=== PATIENT | male | born 1960 | race Caucasian/White ===

== ENCOUNTER 2021-08-09 14:54 | Emergency (ER) | payer OTHER, SELFPAY ==
[2021-08-09 15:06] VITALS: BP 134/87; PULSE 120; RESP 16; TEMP 36.2; O2SAT 100
--- NOTE | 2021-08-09 15:32 | ED.SKABFB ---
HPI - Skin/Abscess/Foreign Bdy General Chief complaint: Skin/Abscess/Foreign Body Stated complaint: bump on groin area Time Seen by Provider: 08/09/21 15:23 Source: patient and family Mode of arrival: ambulatory Limitations: no limitations History of Present Illness HPI narrative: Patient presents today complaining of 4-day history of abscess to the genital area that has worsened for the past 3 days. Patient states he has had a boil to this area in the past last December that ruptured on its own and drained. Currently rates pain 3/10 at rest, but this increases significantly with any walking or sitting. He has been taking ibuprofen, applying a heat pack, and PRID salve without much relief. Related Data Allergies Allergy/AdvReac Type Severity Reaction Status Date / Time No Known Allergies Allergy Verified 08/09/21 15:23 Review of Systems Review of Systems: CONSTITUTIONAL: Denies body aches, fever, chills, or sweats. EYES: Denies visual changes, redness, or discharge. ENT: Denies rhinorrhea, congestion, sore throat, or otalgia. CARDIOVASCULAR: Denies chest pain, palpitations, or edema. RESPIRATORY: Denies cough or dyspnea. GASTROINTESTINAL: Denies abdominal pain, nausea, vomiting, or diarrhea. GENITOURINARY: Denies dysuria or hematuria. SKIN: Denies rash, itching, or wounds.+ Genital abscess MUSCULOSKELETAL: Denies back pain, joint pain, or myalgia. NEUROLOGIC: Denies headache, numbness, tingling, or weakness. PSYCH: Denies depression or anxiety. PMFSH Comments At time of signature, I have reviewed and agree with nursing past medical, surgical, social and family history unless otherwise noted. Please see nursing chart for further information. There is no relevant family history pertinent to the presenting complaint Exam Narrative: GENERAL: Well-appearing, well-nourished, and in no acute distress. HEAD: Normocephalic, atraumatic. EYES: EOMI. No redness or drainage. Conjunctivae normal. ENT: Mucous membranes pink and moist. NECK: Normal AROM. CHEST: No respiratory distress. EXTREMITIES: Normal range of motion. No edema. SKIN: Warm, dry, no rash. Capillary refill normal. Normal skin turgor. Patient has a naproxen and a 4x4cm round, bulging, fluctuant abscess to the left perineum that is tender to palpation. The skin overlying this area is very very thin. Patient is lying down on the bed as he states he cannot sit due to pain. This abscess does not extend to the rectal area. NEURO: No focal deficits. Alert and oriented x3. Gait steady. PSYCH: Normal affect. No signs of depression or anxiety. Course Course Level of Care: Express Care Visit Vital Signs Vital signs: Vital Signs Temperature 97.1 F L 08/09/21 15:06 Pulse Rate 120 H 08/09/21 15:06 Respiratory Rate 16 08/09/21 15:06 Blood Pressure 134/87 08/09/21 15:06 Pulse Oximetry 100 08/09/21 15:06 Oxygen Delivery Room Air 08/09/21 15:06 Temperature 97.1 F L 08/09/21 15:06 Pulse Rate 120 H 08/09/21 15:06 Respiratory Rate 16 08/09/21 15:06 Blood Pressure 134/87 08/09/21 15:06 Pulse Oximetry 100 08/09/21 15:06 Oxygen Delivery Room Air 08/09/21 15:06 Reviewed. Pt has been instructed to follow up with his PCP regarding his elevated blood pressure today. Procedures Abscess I/D perineal: Date of Incision: 08/09/21 Time of Incision: 15:45 Sedation/analgesia: none Local Anesthetic: lidocaine 1% Amount of anesthesia used (mL): 5 Technique: incised with #11 blade Amount of fluid expressed (mL): 30 Irrigation: Yes (normal saline) Packing used?: iodoform I&D Results: Pus Abcess I&D Additional Comments: Patient tolerated procedure well. Significant pain relief when finished with procedure. MDM - Skin/Abscess/Foreign Bdy Differential Diagnosis Differential diagnosis: Likely abscess of skin or subcutaneous tissue, cellulitis and other (Perirectal abscess)
== END 2021-08-09 16:24 | disposition home or self-care (01) ==
PROVIDERS: Emergency Provider Nurse Practitioner
DX: L02.215 Cutaneous abscess of perineum (principal); E78.00 Pure hypercholesterolemia, unspecified; I10 Essential (primary) hypertension
CPT/HCPCS: 10061; 87070; 87077; 87147; 87181; 87186; 87205; 99213; G0463

== ENCOUNTER 2023-05-31 12:41 | Outpatient (CLI) | payer BC, SELFPAY ==
--- NOTE | 2023-05-31 12:54 | ECG_ITS ---
Measurements Intervals [place] Rate: 93 P: 48 LA: 153 QRS: -7 QRSD: 98 T: 62 QT: 341 QTc: 424 Interpretive Statements SINUS RHYTHM DELAYED PRECORDIAL R/S TRANSITION BASELINE ARTIFACT- I, III, AVL, V2-V6 BORDERLINE ECG NO PREVIOUS ECG AVAILABLE FOR COMPARISON Electronically Signed On 05-31-2023 13:26:02 CDT by Rick Cody D.O.
== END 2023-05-31 12:42 | disposition home or self-care (01) ==
LOC: ANHSURGERY 12:49
PROVIDERS: PCP Family Medicine; Visit Provider Surgery
DX: Z01.818 Encounter for other preprocedural examination (principal); E78.5 Hyperlipidemia, unspecified
CPT/HCPCS: 93005

== ENCOUNTER 2023-06-03 00:25 | Day surgery (SDC) | payer BC, SELFPAY ==
[2023-05-30 10:38] VITALS: BMI 27.7
--- NOTE | 2023-05-30 10:48 | PC.NURSE ---
Report to the Outpatient Waiting Room, entrance under the green pavilion located off [facility], at time 11:00am on date 06/03/23. Planned Procedure Time: 1:00pm. Time changes happen often and if your time is changed the preop area will call you the afternoon before. - You and your visitor will be asked to self-screen and do not enter if you have any COVID symptoms. - A mask is optional within the hospital at this time. Patients may have clear liquids (water, carbonated beverages, clear teas, apple juice) until 3 hours prior to surgery (10:00am) with a maximum of 20 ounces. - No food from midnight until time of surgery Take the following medications with a SIP of water the morning of surgery: N/A DO NOT STOP ANY OF YOUR OTHER PRESCRIPTION MEDICATIONS PRIOR TO SURGERY ?EXCEPT THE FOLLOWING Medications to discontinue per physician PREBIOTIC Date to take last dose TODAY Please no make-up, nail bulgarian, hairspray, perfume, deodorant, or body powder the day of surgery. No jewelry (including any body piercings) or valuables the day of surgery, leave them at home. Please take a shower or bath the night before, or the morning of, surgery with an antibacterial soap. Wear comfortable, loose fitting clothing. - Jewelry must be removed prior to entering the operating room. Rings and piercings that are not removed may be cut off. - The hospital will not accept responsibility for valuables. - Please leave all valuables, including medications, at home the day of surgery. If you are going home after surgery, a licensed fast food delivery driver must drive you home. - NO public transportation without another adult if you receive anesthesia. - We recommend that an adult stay with you for 24 hours following discharge. - We also recommend that you do not drive, make important decision, drink alcoholic beverages, or take any drugs that were not prescribed by your health care provider for at least 24 hours after your discharge time. Follow any additional instructions given to you from your surgeon. If you or anyone in your household have experienced Covid symptoms in the past week, please notify your surgeon or the nurse liaison at the phone number below for possible testing. Telephone instructions given to PATIENT and asked if any additional questions and then verbalized understanding. Patient advised to call surgeon office or pre surgery nurse liaison [phone] if any additional questions.
[2023-06-03] VITALS (7 sets, daily range): BP systolic 107–126; BP diastolic 74–87; PULSE 84–100; RESP 12–20; TEMP 36.3; O2SAT 99–100
[2023-06-03] MEDS: LACTATED RINGERS 1,000 ML 30 ML IV CONT (10:25)
[2023-06-03] MEDS: ACETAMINOPHEN 500 MG TABLET 1000 MG PO (10:27)
[2023-06-03] MEDS: KETOROLAC 15 MG/ML VIAL (*BKC) IV PUSH (10:27)
--- NOTE | 2023-06-03 10:57 | P.PNAN_ITS ---
Anes - Initial Pre Proc Eval Procedure: Operation Date: 06/03/23 12:00 Proposed Procedures p Rectal Examination Under Anesthesia, Anal Fistulotomy - Jb Khan DO Date/Time: 06/03/23 10:57 Surgeon: Jb Khan DO Pre Op Diagnosis: anal fistula Patient Data Age: 62 Gender: M Height: 1.68 m Weight: 80.6 kg Last Vital Signs Temp 36.3 C L 06/03/23 09:59 Pulse 88 06/03/23 09:59 Resp 18 06/03/23 09:59 BP 115/74 06/03/23 09:59 Pulse Ox 99 06/03/23 09:59 O2 Del Method Room Air 06/03/23 09:59 Allergies Allergy/AdvReac Type Severity Reaction Status Date / Time prednisone Allergy Intermediate Rash Verified 06/03/23 10:47 Home Medications Medication Instructions Recorded Confirmed Type amlodipine 5 mg-olmesartan 20 mg 1 tablet PO DAILY 03/31/23 06/03/23 History tablet atorvastatin 40 mg tablet 40 mg PO DAILY 03/31/23 06/03/23 History Prebiotic Fiber 1 tab-cap PO DAILY 05/30/23 06/03/23 History Patient hx anesthesia problems: none Family hx anesthesia problems: none Results Review: All pre-operative results and documents have been reviewed as part of the pre- operative evaluation. [facility] Past Medical History Medical History Benign essential HTN Hyperlipidemia Perianal abscess Family History Family History Mother Depression Grandparent Lung cancer Hypertension Heart disease Cerebrovascular accident Social History Social History Social History: Smoking status: Never smoker Tobacco type: smokeless tobacco Second hand tobacco smoke exposure: No Alcohol intake: current Drinks per week: 18 Substance use: never Substance use type: does not use Do You Feel Safe in your Home?: Yes Lack of Transportation: No Lack of Food: Never True Current Housing: I Have Housing Concerned About Future Housing: No Difficulty Paying Gas/Electric Bills: No Difficulty Paying for Meds: No Currently Unemployed: YES Education: Don't Know Difficulty w/ Childcare or Family Care: No Living arrangements: with family Occupation/Education: retired Gender identity (if verbalized by the patient): Male Sexual Orientation (if Verbalized by the Patient): Straight or Heterosexual Spiritual care concerns: No Anes - Eval Final PreProcedure Day of Procedure 06/03/23 10:57 Patient weight: overweight Heart: regular rate and rhythm Lungs: clear to auscultation Airway: Mallampati scale class II Neurological: alert and oriented Last oral intake: >/= 8 hours ASA classification: III Emergent: no Anesthetic plan: proceed Anesthesia type and monitoring: general ETT and standard monitoring Results Review: All pre-operative results and documents have been reviewed as part of the pre- operative evaluation. Informed Consent: The patient's anesthetic plan and its attendant risks and benefits were discussed with the patient/family/POA. Questions were solicited and answers provided to the satisfaction of the patient/family/POA.
--- NOTE | 2023-06-03 11:35 | PM.IMHP ---
H&P: HPI History of Present Illness Date/Time: 06/03/23 11:35 Chief Complaint: anal fistula Narrative: 62 yo man presents for anal fistulotomy. He reports no changes since last seen in office. Review of Systems Review of Systems: All systems reviewed & are unremarkable except as noted in HPI and below Constitutional: Constitutional: Denies chills, Denies fever(s), Denies headache(s) and Denies weight loss Eyes: Eyes: Denies change in vision ENT: Denies dizziness, Denies headache(s), Denies neck mass and Denies throat swelling Cardiovascular: Cardiovascular: Denies chest pain, Denies lightheadedness and Denies dyspnea Respiratory: Respiratory: Denies cough, Denies dyspnea and Denies wheezing Gastrointestinal: Gastrointestinal: Denies abdominal pain, Denies change in bowel habits, Denies nausea and Denies vomiting Genitourinary: Genitourinary: Denies hematuria and Denies dysuria Musculoskeletal: Musculoskeletal: Reports as per HPI Integumentary/Breasts: Skin/Breast: Reports as per HPI Neurologic: Denies dizziness and Denies headache(s) Allergic/Immunologic: Allergic/Immunologic: Denies throat swelling and Denies wheezing PMFSH Past Medical History Medical History Benign essential HTN Hyperlipidemia Perianal abscess Family History Family History Mother Depression Grandparent Lung cancer Hypertension Heart disease Cerebrovascular accident Social History Social History Social History: Smoking status: Never smoker Tobacco type: smokeless tobacco Second hand tobacco smoke exposure: No Alcohol intake: current Drinks per week: 18 Substance use: never Substance use type: does not use Do You Feel Safe in your Home?: Yes Lack of Transportation: No Lack of Food: Never True Current Housing: I Have Housing Concerned About Future Housing: No Difficulty Paying Gas/Electric Bills: No Difficulty Paying for Meds: No Currently Unemployed: YES Education: Don't Know Difficulty w/ Childcare or Family Care: No Living arrangements: with family Occupation/Education: retired Gender identity (if verbalized by the patient): Male Sexual Orientation (if Verbalized by the Patient): Straight or Heterosexual Spiritual care concerns: No Meds Home Medications and Allergies Home Medications Medication Instructions Recorded Confirmed Type amlodipine 5 mg-olmesartan 20 mg 1 tablet PO DAILY 03/31/23 06/03/23 History tablet atorvastatin 40 mg tablet 40 mg PO DAILY 03/31/23 06/03/23 History Prebiotic Fiber 1 tab-cap PO DAILY 05/30/23 06/03/23 History Allergies Allergy/AdvReac Type Severity Reaction Status Date / Time prednisone Allergy Intermediate Rash Verified 06/03/23 10:47 Vital Signs Vital Signs - 24 hr 06/03/23 09:59 Temperature 36.3 C L Pulse Rate 88 Respiratory Rate 18 Blood Pressure 115/74 Pulse Oximetry 99 Oxygen Delivery Room Air Exam Const: General: no acute distress and alert Orientation/consciousness: patient oriented x3 HENMT: Head: normocephalic and atraumatic Ears: hearing grossly normal bilaterally Face/Nose/Sinus: Normal nares present Mouth: Yes Normal oral and palatal mucosa present Eyes: Periorbital: periorbital findings normal Sclera: sclerae normal EOM: EOMs intact bilaterally Neck: Neck: normal visual inspection, no lymphadenopathy and trachea midline Chest: Chest palpation & inspection: normal inspection of the chest Resp: Effort & Inspection: normal respiratory effort Auscultation: clear to auscultation bilaterally Cardio: Jugular venous distension: no JVD Rate: regular rate Rhythm: regular rhythm Heart sounds: S1 normal heart sound present and S2 normal heart sound present Peripheral pulses: Peripheral pulses 2+ throughout GI: Inspection:
--- NOTE | 2023-06-03 11:36 | WPDHPUPDATE1 ---
History and Physical Update Update Date/Time: 06/03/23 11:36 History and Physical has been reviewed, including an updated exam of the patient. There are NO changes in the patient's condition. Risks, benefits, and alternatives have been discussed and questions answered. Patient agrees to proceed with procedure.
[2023-06-03] MEDS: ceFAZolin 2 GM/D5W 50 ML 2 GM/50 ML BAG IVPB (11:55)
[2023-06-03] MEDS: BUPivacaine HCL 0.5% 10 ML AMP INFILTRATE (12:30)
--- NOTE | 2023-06-03 12:34 | W.PM.PROC2 ---
Procedure Note - Detailed Date of Procedure 06/03/23 Pre-op Diagnosis anal fistula Post-op Diagnosis Same (Suprasphincteric left anterior anal fistula) Procedure Performed Rectal exam under anesthesia with placement of draining seton Surgeon Jb Khan, DO Anesthesia General and Local (0.5% bupivacaine with epinephrine) Indications This is a 62-year-old man who presented with intermittent drainage in his perirectal region. He has a history of a perirectal abscess that was incised and drained about 3 years ago. He then was having intermittent drainage about every 4-6 weeks. He was living in [place] and states that he had the area cauterized twice but the area kept returning. On exam he was found have a small raised nodule the left anterior perirectal region that had a small punctate opening consistent with an anal fistula. Discussions were made with the patient about treatment options and decision was made to proceed with rectal exam under anesthesia with fistulotomy. Findings Rectal exam anesthesia was performed. The patient was found to have an anal fistula opening in the left anterior perirectal region about 3 cm from the anal verge. The fistula tract appeared to track deep into the perirectal tissue and was tracking all the way superior to the sphincter muscle fibers. Hydrogen peroxide was injected into the fistula tract to help identify the internal opening. Was then able to pass probe along this tract into internal opening in the anterior midline. Due to how deep the tract was and involving the sphincter muscles, I chose to place a vessel loop for a seton drain. No attempt was made at fistulotomy due to the risk transecting the sphincter. No other abnormalities were noted. No specimens were obtained for pathology. Description of Procedure Procedure as well as risks, benefits, and alternatives were discussed with the patient. Written consent was obtained and placed in chart prior to procedure. Patient was brought back to surgical suite. He was placed supine on operating table. Time-out was done to confirm patient and procedure. He was then intubated by the anesthesia department. He was then repositioned into dorsal lithotomy position on the operating table. His perirectal region was prepped and draped in sterile fashion using Betadine prep. Digital rectal exam was initially performed. A Hill-Arrington anoscope was then inserted and the anal rectal canal was carefully inspected. No internal abnormalities were initially seen but there did appear to be some dimpling in the anterior midline region along the anal canal. The external opening on the skin was identified in the left anterior region. A small lacrimal probe was inserted into this opening and the tract was carefully probed. It was initially difficult to identify the tract due to have deep it was tracking. I then used a 25 gauge Angiocath and injected a few mL hydrogen peroxide into the tract. The tract swiftly drained the peroxide internally in the anterior midline region. I then carefully advanced my probe through this tract all the way to the internal. The tract was carefully palpated and appeared to involve a significant amount of the sphincter muscle fibers. I then chose to perform a seton drain instead of fistulotomy. A silk suture was tied around the of the probe then silk suture was delivered through the tract. I then tied silk suture to a red vessel loop and then delivered the red vessel loop through the fistula tract. The red vessel loop was then secured in place using 0 silk ties. The area was inspected and no other abnormalities were noted. 0.5% bupivacaine with epinephrine was infiltrated around the perirectal tissue. The scope was then removed. Fluff gauze and mesh underwear were then applied. The patient was then awakened from anesthesia, extubated, and transferred to recovery. Estimated Blood Loss 2 Complications No immediate [facility]
[2023-06-03] MEDS: oxyCODONE HCL (*CRX) 5 MG TAB IR PO (13:36)
== END 2023-06-03 13:50 | disposition home or self-care (01) ==
PROVIDERS: PCP Family Medicine; Visit Provider Surgery
PROC: (CPT 46020; principal; 2023-06-03 12:00)
DX: K60.3 Anal fistula (principal); I10 Essential (primary) hypertension; E78.5 Hyperlipidemia, unspecified
CPT/HCPCS: 46020; A9270; J0330; J0690; J1100; J1596; J1885; J2405; J2704; J7120

== ENCOUNTER 2024-04-18 09:58 | Outpatient (CLI) | payer BC, SELFPAY ==
[2024-04-18 10:19] LABS: Basophils Percent Auto 0.9 % (0.2-1.2); Eosinophils Absolute Auto 0.1 K/mm3 (0-0.3); Eosinophils Percent Auto 1.5 % (0-4.4); Hematocrit 41.6 % (42.0-52.0); Hemoglobin 14.4 g/dL (14.0-18.0); Immature Granulocyte Absolute 0.01 K/mm3 (0.00-0.031); Immature Granulocyte Percent A 0.2 % (0-0.5); Lymphocytes Absolute Auto 1.96 K/mm3 (0.9-3.2); Lymphocytes Percent Auto 43.3 % (18.3-44.2); Mean Corpuscular HGB Conc 34.6 g/dl (32-36); Mean Corpuscular Hemoglobin 35.8 pg (26-34); Mean Corpuscular Volume 103.5 fl (80-100); Mean Platelet Volume 8.4 fl (7.4-10.4); Monocytes Absolute Auto 0.5 K/mm3 (0.1-0.6); Monocytes Percent Auto 11.7 % (2.6-8.5); Neutrophils Absolute Auto 1.9 K/mm3 (1.3-6.7); Neutrophils Percent Auto 42.4 % (45.5-73.1); Platelet Count Result 187 k/mm3 (150-375); Red Blood Count 4.02 M/mm3 (4.6-6.20); Red Cell Distribution Width 13.3 % (11.5-14.5); White Blood Count 4.5 K/mm3 (4.5-10.0)
[2024-04-18 10:33] LABS: Alanine Aminotransferase 67 U/L (6-50); Albumin Level 4.2 g/dL (3.5-5.1); Alkaline Phosphatase 65 U/L (38-126); Anion Gap 8 mmol/L (4-12); Aspartate Amino Transferase 81 U/L (17-59); Bilirubin,Total 1.2 mg/dL (0.2-1.3); Blood Urea Nitrogen 12 mg/dL (9-20); Calcium 9.3 mg/dL (8.4-10.2); Carbon Dioxide 32 mmol/L (22-30); Chloride 101 mmol/L (98-107); Cholesterol 167 mg/dL (0-200); Estimated Glomerular Filt Rate > 60; Glucose 82 mg/dL (65-110); HDL Direct 109 mg/dL; Potassium 3.6 mmol/L (3.4-5.0); Sodium 141 mmol/L (137-145); Triglycerides 203 mg/dL (<150)
[2024-04-18 10:44] LABS: LDL Cholesterol Direct 42 mg/dL
--- OUTSIDE RECORDS SUMMARY | 2024-04-18 10:53 | XMS_ITS | Referral Summary ---
Author Organization [facility] Address [address] [place] [address] Care Team Providers Care Door To Door Selling Agent Name Role Phone Dustyqasim Jb Elder DO Unavailable [phone] Zurdo Bennett MD Unavailable [phone] Felicita Mujica NP Primary Care Provider Allergies No known active allergies Medications atorvastatin (LIPITOR) 40 mg tabletIndicatio ns:hyperlipidem ia Take 1 tablet (40 mg total) by mouth product safety manager before breakfast Active amlodipine-olme sartan (BINTA) 5-20 mg per tabletIndicatio ns:hypertension Take 1 tablet by mouth product safety manager before breakfast Active oxyCODONE (ROXICODONE) 5 mg immediate release tabletIndicatio ns:Pain Take 1 tablet (5 mg total) by mouth every 6 (six) hours as needed for pain 20 tablet 4 Active Additional Information Patient not taking.Reported on 10/07/2023 acetaminophen (TYLENOL) 500 mg tablet Take 2 tablets (1,000 mg total) by mouth every 6 (six) hours as needed for pain 100 tablet 4 Active Active Problems Problem Noted Date Diagnosed Date 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 Immunizations Name Administration Dates Next Due COVID-19 MRNA (MODERNA) .5 M L (50 MCG) VACCINE (12 YEARS AND UP) 01/31/2023 Social History Tobacco Use Types Packs/Day Years Used Date Smoking Tobacco: Never Smokeless Tobacco: Former Chew Tobacco Cessation:Counseling Given: Yes AUDIT-C Answer Date Recorded Q1: How often do you have a drink containing alcohol? 4 or more times a week 08/22/2023 Q2: How many drinks containi ng alcohol do you have on a typical day when you are drinking? 3 or 4 Q3: How often do you have si x or more drinks on one occasion? Never 08/22/2023 Personal Safety Answer Date Recorded Have you ever been in or are you currently in a harmful physical or emotional relationship or is someone making you feel afraid or unsafe? 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 Gender Identity Male 06/15/2023 2:16 PM CDT Sexual Orientation Straight 06/15/2023 2: 16 PM CDT Last Filed Vital Signs Vital Sign Reading Time Taken Comments Blood Pressure 147/87 10/07/2023 3:10 PM CDT Pulse 100 10/07/2023 3:10 PM CDT Temperature 36.8 ??C (98.2 ??F) 10/07/2023 3:10 PM CD T Respiratory Rate 15 09/02/2023 1:05 PM CDT Oxygen Saturation 100% 10/07/2023 3:10 PM CDT Inhaled Oxygen Concentration - - Weight 81.2 kg (179 lb) 10/07/2023 3:10 PM CDT Height 167.6 cm (5' 6 ) 10/07/2023 3:10 PM CDT Body Mass Index 28.89 10/07/2023 3:10 PM CDT Plan of Treatment Not on file Insurance [facility] ACCESS CHOICE ANTHEM ACCESS CHOICE Care Teams Door To Door Selling Agent Relationship Specialty Start Date End Date Felicita Mujica INDUSTRIAL ORGANIZATION MANAGER [address] [place] [address] [address] [place], [place] [id number] PCP - General Nurse Practitioner 08/22/23 Jb Khan DO [address] [facility] [address] [place], [place] [id number] Referring Physician Surgery 06/08/23 Zurdo Bennett MD [phone] [place] [address] Surgeon Colon and Rectal Surgery 07/22/23
--- OUTSIDE RECORDS SUMMARY | 2024-04-18 10:53 | XMS_ITS | Clinical Summary ---
Author Organization [facility] Address [address] [place] [address] Care Team Providers Care Manager Investment Name Role Phone Dustyqasim Jb Elder DO Unavailable [phone] Zurdo Bennett MD Unavailable [phone] Felicita Mujica NP Primary Care Provider Allergies No known active allergies Medications atorvastatin (LIPITOR) 40 mg tabletIndicatio ns:hyperlipidem ia Take 1 tablet (40 mg total) by mouth floorperson before breakfast Active amlodipine-olme sartan (BINTA) 5-20 mg per tabletIndicatio ns:hypertension Take 1 tablet by mouth floorperson before breakfast Active oxyCODONE (ROXICODONE) 5 mg [...] MCG) VACCINE (12 YEARS AND UP) 01/31/2023 Surgical History Surgery Date Site/Laterality Comments ANAL EXAMINATION UNDER ANESTHESIA 10/12/2022 - 11/11/2022 OSTEOTOMY CALCANEUS W/ OR W/O INTERNAL FIXATION 03/14/2014 - 03/13/2015 Left VASECTOMY 03/14/1993 - 03/13/1994 ABLATION 03/14/2022 - 03/13/2023 anal fistula x2 2022 HAND SURGERY 07/12/2022 - 08/11/2022 Right KIDNEY STONE SURGERY 03/14/1998 - 03/13/1999 ORAL SURGERY multiple unknown dates WISDOM TOOTH EXTRACTION FISTULA REPAIR 09/02/2023 Ligation of intersphincteric fistula tract Medical History Medical History Date Comments HBP (high blood pressure) Sleep apnea Family History Medical History Relation Name Comments Anesthesia problems Neg Hx Social History Tobacco Use Types Packs/Day Years [...] on file 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 Gender Identity Male 06/15/2023 2:16 PM CDT Sexual Orientation Straight 06/15/2023 2: 16 PM CDT Obstetrics History Last Filed Vital Signs Vital Sign Reading [...] 10/07/2023 3:10 PM CDT Plan of Treatment Health Maintenance Due Date Last Done Comments Colon Cancer Screening-Colonoscopy 1962 Depression Screening 1962 Hepatitis C Screening 1962 Prostate Cancer Screening-PSA 1962 DTaP/Tdap/Td Vaccine (1 - Tdap) 1973 Hepatitis B Screening 1980 Regular Well Visit/Exam 18-64 1980 Zoster Vaccine (1 of 2) 2012 Influenza Vaccine (#1) 2023 01/31/2023 Pneumococcal vaccine <65 Aged Out No longer eligible based on patient's age to complete [place] [address] [place] [place] [address] [address] [place] [address] [employer] Care Teams Manager Investment Relationship Specialty Start Date End Date Felicita Mujica NP [facility] [address] [place] [address] PCP - General Nurse Practitioner 08/22/23 Jb Khan DO [address] [place] [address] Referring Physician Surgery 06/08/23 Zurdo Bennett MD [phone] [place] [address] Surgeon Colon and Rectal Surgery 07/22/23
[2024-04-18 11:02] LABS: Prostate Specific Antigen 1.5 ng/mL (< OR = 4.0)
== END 2024-04-18 09:59 | disposition home or self-care (01) ==
PROVIDERS: PCP Nurse Practitioner; Visit Provider Nurse Practitioner
DX: Z12.5 Encounter for screening for malignant neoplasm of prostate (principal); I10 Essential (primary) hypertension; R78.5 Finding of other psychotropic drug in blood
CPT/HCPCS: 36415; 80053; 80061; 84153; 85025; G0103

== ENCOUNTER 2025-02-04 21:31 | Inpatient (IN) | payer BC, SELFPAY ==
[2025-02-04] VITALS (8 sets, daily range): BP systolic 155–182; BP diastolic 82–100; PULSE 81–106; RESP 12–21; TEMP 36.7; O2SAT 97–100
--- NOTE | ~2025-02-04 | CT_ITS ---
CT HEAD NON-CONTRAST Clinical History: htn, garcia Comparison: None Technique: Unenhanced axial images skull base to vertex Coronal, sagittal reformats CT images acquired with automatic exposure control for dose reduction DLP: 681 mGy-cm Findings: Small hyperdense focus posterior to right lateral ventricle. Sulci, ventricles: Unremarkable. No intracerebral hemorrhage. No evidence acute territorial infarct. No mass effect, midline shift. Bony calvarium intact. Visualized paranasal sinuses: Clear. Mastoid air cells: Clear. IMPRESSION: 1. No acute intracranial findings. 2. 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 Recommend MRI. Reviewed, dictated and finalized at location R. TRY TRIMMER IMPRESSION: 1. No acute intracranial findings. 2. 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 Recomme nd MRI.
--- NOTE | ~2025-02-04 | XR_ITS ---
Examination: XR chest 2V Clinical History: L arm pain/fingers tingling Comparison: None Technique: PA and Lateral Findings: Cardiomediastinal silhouette normal size and configuration. Elevated right hemidiaphragm, associated basilar atelectasis. Lungs otherwise clear. No acute bony abnormality. IMPRESSION: 1. No acute cardiopulmonary findings. Reviewed, dictated and finalized at location R. ECTOR OF [facility]
--- NOTE | ~2025-02-04 | MR_ITS ---
EXAMINATION: MRI brain with and without contrast: DATE: 02/05/2025. INDICATION: 64-year-old with history of hypertension. Suspected cavernous malformation of right parietal lobe, periventricular location on CT head. Headache. TECHNIQUE: Axial, coronal and sagittal images of including postcontrast examination with MultiHance IV were obtained. COMPARISON: CT head without contrast dated 02/04/2025. FINDINGS: No acute infarct on the diffusion sequence. On the T2*gradient sequence, low-density lesion posterior to the occipital horn of right lateral ventricle in the right parietal lobe corresponding to the small hyperdense focus in the same area noted on CT scan. This area measures 9 mm in diameter on the T2*gradient sequence. No evidence of ventriculomegaly or midline shift. No chronic ischemic change. On the postcontrast series, faintly enhancing venous angioma is noted in the same region. No evidence of AV malformation. No midline shift. Major arteries of [place] are patent. IMPRESSION: 1. 5 to 6 mm size lesion posterior to the occipital horn of the right lateral ventricle corresponding to the hyperdense focus on CT scan of 02/04/2025 is identified on MRI this is suggestive of a small hematoma. There is evidence of venous angioma noted in the same location. No evidence of AV malformation. 2. No other focal intracranial abnormalities are seen. No acute ischemia. No evidence of neoplasm. Reviewed, dictated and finalized at location T. IUM PLATER IMPRESSION: 1. 5 to 6 mm size lesion posterior to the occipital horn of the right lateral v entricle corresponding to the hyperdense focus on CT scan of 02/04/2025 is iden tified on MRI this is suggestive of a small hematoma. There is evidence of veno us angioma noted in the same location. No evidence of AV malformation. 2. No other focal intracranial abnormalities are seen. No acute ischemia. No ev idence of neoplasm.
--- OUTSIDE RECORDS SUMMARY | 2025-02-04 21:34 | XMS_ITS | Clinical Summary ---
Author Organization [facility] Address [address] [place] [address] Care Team Providers Care Chaser Helper Name Role Phone Dustyqasim Jb Elder DO Unavailable [phone] Zurdo Bennett MD Unavailable [phone] Felicita Mujica NP Primary Care Provider [phone] Allergies No known active allergies Medications atorvastatin (LIPITOR) 40 mg tabletIndicatio ns:hyperlipidem ia Take 1 tablet (40 mg total) by mouth communication lecturer before breakfast Active amlodipine-olme sartan (BINTA) 5-20 mg per tabletIndicatio ns:hypertension Take 1 tablet by mouth communication lecturer before breakfast Active oxyCODONE (ROXICODONE) 5 mg [...] Date Diagnosed Date 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 Immunizations Immunization Administration Dates Next Due COVID-19 MRNA (MODERNA) [...] on file 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 Gender Identity Male 06/15/2023 2:16 PM CDT Sexual Orientation Straight 06/15/2023 2: 16 PM CDT Last Filed Vital Signs Vital Sign Reading Time Taken Comments Blood Pressure 147/87 10/07/2023 3:10 PM CDT Pulse 100 10/07/2023 3:10 PM CDT Temperature 36.8 C (98.2 F) 10/07/2023 3:10 PM CDT Respiratory Rate 15 09/02/2023 1:05 PM CDT Oxygen Saturation 100% 10/07/2023 3:10 PM CDT Inhaled Oxygen Concentration - - Weight 81.2 kg (179 lb) 10/07/2023 3:10 PM CDT Height 167.6 cm (5' 6) 10/07/2023 3:10 PM CDT Body Mass Index 28.89 10/07/2023 3:10 PM CDT Plan of Treatment Health Maintenance Due Date Last Done Comments Colon Cancer Screening-Colonoscopy 1962 Depression Screening 1962 Hepatitis C Screening 1962 Prostate Cancer Screening-PSA 1962 DTaP/Tdap/Td Vaccine (1 - Tdap) 1973 Hepatitis B Screening 1980 Regular Well Visit/Exam 18-64 1980 Zoster Vaccine (1 of 2) 2012 Influenza Vaccine (#1) 2024 01/31/2023 Pneumococcal vaccine <65 Aged Out No longer eligible based on patient's age to complete [place] [address] [place] [address] Monitor[employer] Care Teams Chaser Helper Relationship Specialty Start Date End Date Felicita Mujica NP [address] [place] [address] [place] [address] PCP - General Nurse Practitioner 08/22/23 Jb Khan DO [address] [facility] [address] [place], [place] [id number] Referring Physician Surgery 06/08/23 Zurdo Bennett MD [phone] [place] [address] Surgeon Colon and Rectal Surgery 07/22/23
--- NOTE | 2025-02-04 21:45 | ECG_ITS ---
Test Date: 2025-02-04 21:51:26 Measurements Intervals [place] Rate: 89 P: 58 FL: 146 QRS: -12 QRSD: 102 T: 63 QT: 348 QTc: 424 Interpretive Statements SINUS RHYTHM Electronically Signed On 02-05-2025 05:55:02 REGISTER IN CHANCERY by Justin Smith D.O
[2025-02-04 22:06] LABS: Hematocrit 40.8 % (42.0-52.0); Hemoglobin 14.4 g/dL (14.0-18.0); Immature Granulocyte Percent A 0.1 % (0-0.5); Lymphocytes Absolute Auto 1.72 K/mm3 (0.9-3.2); Mean Corpuscular HGB Conc 35.3 g/dl (32-36); Mean Corpuscular Hemoglobin 36.6 pg (26-34); Mean Corpuscular Volume 103.8 fl (80-100); Nucleated Red Blood Cells Absolute Auto 0.000 K/mm3 (0.0-0.012); Nucleated Red Blood Cells Perc 0.0 % (0.0-0.2); Platelet Count Result 212 k/mm3 (150-375); Red Blood Count 3.93 M/mm3 (4.6-6.20); White Blood Count 6.9 K/mm3 (4.5-10.0)
[2025-02-04 22:17] LABS: INR 1.0; Prothrombin Time 13.3 Seconds (11.1-14.7)
[2025-02-04 22:18] LABS: Alanine Aminotransferase 81 U/L (6-50); Albumin Level 4.3 g/dL (3.5-5.1); Alkaline Phosphatase 74 U/L (38-126); Anion Gap 8 mmol/L (4-12); Aspartate Amino Transferase 97 U/L (17-59); Bilirubin,Total 0.7 mg/dL (0.2-1.3); Blood Urea Nitrogen 8 mg/dL (9-20); Calcium 9.6 mg/dL (8.4-10.2); Carbon Dioxide 28 mmol/L (22-30); Chloride 99 mmol/L (98-107); Estimated CRCL calculation 74 ml/min; Estimated Glomerular Filt Rate > 60; Glucose 114 mg/dL (65-110); Lipase 110 U/L (23-300); Partial Thromboplastin Time 25.5 Seconds (22.3-36.8); Potassium 3.6 mmol/L (3.4-5.0); Sodium 135 mmol/L (137-145); Total Protein 6.9 g/dL (6.3-8.2)
[2025-02-04 22:30] LABS: Troponin I < 0.012 ng/mL (0.000-0.034)
[2025-02-04] MEDS: ASPIRIN 81 MG CHEWABLE TABLET 324 MG PO (22:43)
--- OUTSIDE RECORDS SUMMARY | 2025-02-04 23:33 | XMS_ITS ---
Author Organization Unknown ENCOUNTERS Encounter Performer Location Date Diagnosis Diagnosis Status Emergency [facility] [address] [place] [address] [id number] Pre Admit [facility] [address] [place] [address] [id number] Outpatient Felicita Mujica [facility] [address] [place] [address] [id number] [place] [facility] [address] [place] [address] [id number] [place] [facility] [address] [place] [address] [id number] [place] *Note: Encounters from your own facility or health system may be excluded. Allergies, Adverse Reactions, Alerts Allergen Type Severity Identification Date prednisone drug allergy 3 [id number] Medications Name Date Quantity Days Supplied [facility] Number
--- OUTSIDE RECORDS SUMMARY | 2025-02-04 23:33 | XMS_ITS | Clinical Summary ---
Author Organization [facility] Address [address] [place] [address] Care Team Providers Care Patient Coordinator Front Desk Name Role Phone Dustyqasim Jb Elder DO Unavailable Zurdo Bennett MD Unavailable [phone] Felicita Mujica NP Primary Care Provider Allergies No known active allergies Medications atorvastatin (LIPITOR) 40 mg tabletIndicatio ns:hyperlipidem ia Take 1 tablet (40 mg total) by mouth business information consultant before breakfast Active amlodipine-olme sartan (BINTA) 5-20 mg per tabletIndicatio ns:hypertension Take 1 tablet by mouth business information consultant before breakfast Active oxyCODONE (ROXICODONE) 5 mg [...] on file 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 Gender Identity Male 06/15/2023 2:16 PM CDT [...] age to complete this topic [place] [address] [employer] [place] [address] [employer] Care Teams Patient Coordinator Front Desk Relationship Specialty Start Date End Date Felicita Mujica NP [address] [place] [address] [place] [address] PCP - General Nurse Practitioner 08/22/23 Jb Khan DO [address] [facility] [address] [place], [place] [id number] Referring Physician Surgery 06/08/23 Zurdo Bennett MD [phone] [place] [address] Surgeon Colon and Rectal Surgery 07/22/23
[2025-02-05] VITALS (26 sets, daily range): BP systolic 130–173; BP diastolic 83–101; PULSE 67–91; RESP 14–22; TEMP 36.1–36.6; O2SAT 95–100; BMI 27.7
--- NOTE | 2025-02-05 00:31 | ED_ITS ---
HPI - General Adult General Chief complaint: Unspecified <MALCOM Han Last Filed: 02/05/25 03:26> Stated complaint: hypertension/pain in L arm <MALCOM Han Last Filed: 02/05/25 03:26> Time Seen by Provider: 02/04/25 23:27 <MALCOM Han Last Filed: 02/05/25 03:26> Source: patient <MALCOM Han Last Filed: 02/05/25 03:26> Mode of arrival: ambulatory <MALCOM Han Last Filed: 02/05/25 03:26> Limitations: no limitations <MALCOM Han Last Filed: 02/05/25 03:26> History of Present Illness HPI narrative: Patient is a 64-year-old male who presents to the ED with multiple complaints. Patient reports over the past 1.5 weeks, he has been having intermittent episodes of elevated blood pressure. States his blood pressure will intermittently be up to 180s over 100s. He does have history of hypertension and takes olmesartan 20 mg daily. Reports compliance with this. States today he began feeling abnormal, somewhat off and foggy, fatigued. States his blood pressure was around 180s over 110s at home. He noticed some tingling in his left fingertips this afternoon which has been intermittent throughout the day. Also reported having some discomfort in his left arm this evening as well as a headache. He then prompted here for further evaluation. Patient denies chest pain, shortness of breath, dizziness, lightheadedness, syncope, LOC, focal numbness or weakness. Denies previous issues with heart disease <MALCOM Han Last Filed: 02/05/25 03:26> Related Data Home medications: Home Medications ?Medication ?Instructions ?Recorded ?Confirmed ?Last Taken ?Type loratadine 10 mg chewable tablet 10 mg PO DAILY PRN al lergy symptoms 05/08/24 02/05/25 02/04/25 History (Claritin) <MALCOM Han Last Filed: 02/05/25 03:26> Allergies/adverse reactions: Allergies Allergy/AdvReac Type Severity Reaction Status Date / Time prednisone Allergy Intermediate Rash Verified 02/05/25 04:32 <Elsie Chandler PA-C - Last Filed: 02/05/25 03:26> Review of Systems 2 Review of Systems: All systems reviewed & are unremarkable except as noted in HPI. <Elsie Chandler PA-C - Last Filed: 02/05/25 03:26> All systems reviewed & are unremarkable except as noted in HPI and below < Elsie Chandler PA-C - Last Filed: 02/05/25 03:26> [facility] Past Medical History Medical History: Medical History Allergies Hyperlipidemia Benign essential HTN Perianal abscess <Elsie Chandler PA-C - Last Filed: 02/05/25 03:26> Surgical History Surgical History: Surgical History History of rectal surgery Rectal exam under anesthesia with placement of draining seton 06/03/23 <Elsie Chandler PA-C - Last Filed: 02/05/25 03:26> Family History Family History: Family History Mother Depression Grandparent Lung cancer Hypertension Heart disease Cerebrovascular accident <Elsie Chandler PA-C - Last Filed: 02/05/25 03:26> Social History Social History: Social History Social History: Smoking status: Never smoker Tobacco type: smokeless tobacco Second hand tobacco smoke exposure: No Alcohol intake: current Drinks per week: 2 Substance use: never Substance use type: does not use Do You Feel Safe in your Home?: Yes Lack of Transportation: No Lack of Food: Never True Current Housing: I Have Housing Concerned About Future Housing: No Difficulty Paying Gas/Electric Bills: No Difficulty Paying for Meds: No Currently Unemployed: No Education: Master's Degree or Higher Difficulty w/ Childcare or Family Care: No Living arrangements: with family Occupation/Education: retired Gender identity (if verbalized by the patient): Male Sexual Orientation (if Verbalized by the Patient): Straight or Heterosexual Spiritual care concerns: No <Elsie Chandler PA-C - Last Filed: 02/05/25 03:26> Exam 2 Narrative: GENERAL: Well appearing, well-nourished, non-toxic, in no acute distress. HEAD: Normocephalic, atraumatic. RESPIRATORY: Airway patent, respirations nonlabored. Clear to auscultation bilaterally, no rales, rhonchi, wheezing. CARDIOVASCULAR: Regular rate and rhythm without murmurs, rubs, or gallops. ABDOMINAL: Soft, nontender, nondistended. Normoactive BS. MUSCULOSKELETAL: Moves all extremities. No gross deformities. SKIN: Warm, dry, normal color. NEURO: A&O X3. Speech clear. Cranial nerves II-XII grossly intact. Steady gait. No ataxic movements. No focal deficits. Sensation intact throughout extremities. 5/5 in upper and lower extremities bilaterally. Equal application helper strength bilaterally. No pronator drift. Somewhat tremulous throughout extremities. PSYCHIATRIC: Mildly anxious appearing. Normal interaction. <Elsie Chandler PA-C - Last Filed: 02/05/25 03:26> Course PREMIUM CANCELLATION CLERK/PA Physician Supervision This visit was performed by both a physician and an Advanced Practice Provider. I performed all aspects of the Medical Decision Making as documented. <Sandeep Vivas MD - Last Filed: 02/05/25 05:19> Vital Signs Vital signs: Vital Signs Temperature 36.7 C 02/04/25 21:39 Pulse Rate 106 H 02/04/25 21:39 Respiratory Rate 18 02/04/25 21:39 Blood Pressure 182/100 H 02/04/25 21:39 Pulse Oximetry 100 02/04/25 21:39 Oxygen Delivery Room Air 02/04/25 21:39 Temperature 36.7 C 02/04/25 21:39 Pulse Rate 81 02/05/25 03:45 Respiratory Rate 17 02/05/25 03:45 Blood Pressure 158/93 H 02/05/25 03:20 Pulse Oximetry 98 02/05/25 03:45 Oxygen Delivery Room Air 02/04/25 21:39 <Elsie Chandler PA-C - Last Filed: 02/05/25 03:26> Vital Signs Temperature 36.7 C 02/04/25 21:39 Pulse Rate 106 H 02/04/25 21:39 Respiratory Rate 18 02/04/25 21:39 Blood Pressure 182/100 H 02/04/25 21:39 Pulse Oximetry 100 02/04/25 21:39 Oxygen Delivery Room Air 02/04/25 21:39 Temperature 36.7 C 02/04/25 21:39 Pulse Rate 81 02/05/25 03:45 Respiratory Rate 17 02/05/25 03:45 Blood Pressure 158/93 H 02/05/25 03:20 Pulse Oximetry 98 02/05/25 03:45 Oxygen Delivery Room Air 02/04/25 21:39 <Sandeep Vivas MD - Last Filed: 02/05/25 05:19> Medical Decision Making MDM Narrative Medical decision making narrative: Patient presented to ED with elevated blood pressures, headache, discomfort left arm, tingling left fingers. BP upon arrival 180/100. Did improve into the 150s without intervention. Vital signs are otherwise stable. Patient neurologically intact upon my evaluation. No focal deficits. EKG without concerning ischemic changes, some baseline artifact. Troponin undetectable x2. Low suspicion for ACS. Chest x-ray interpreted by myself clear, no focal findings Basic laboratory studies are fairly unremarkable. Mild transaminitis noted. This appears fairly consistent with previous records. TSH within normal range Mag was low at 1.2. 2 g IV replacement was given Patient reports he has been told his magnesium has been low in the past. Discussed ETOH use. Patient drink frequently on weekends, but denies daily alcohol use, denies withdrawal sx's. No overt signs of acute alcohol withdrawal. Patient is somewhat tremulous but does admit to being very anxious. Given small dose of ativan. CT brain was obtained and showing evidence of possible cavernous malformation without evidence of recent hemorrhage. Recommend MRI of the brain. Discussed case with Dr. Doherty, neurology, advised can admit for MRI. Most likely chronic, may need f/u outpatient w/ vascular surgery Discussed case with Dr. Angel, accepted patient for admission. Recommended to give 2g more Mag, iv hydralazine 10mg q4h iv prn for SBP > 180, valium 5mgIV. Discussed lab and imaging findings extensively with patient and family. They are in agreement with plan and admission. All questions answered. <Elsie Chandler PA-C - Last Filed: 02/05/25 03:26> Medical Records Medical records reviewed: Yes I reviewed the external patient's medical records. <MALCOM Han Last Filed: 02/05/25 03:26> Vital Signs Vital Signs: Vital Signs Temperature 36.7 C 02/04/25 21:39 Pulse Rate 106 H 02/04/25 21:39 Respiratory Rate 18 02/04/25 21:39 Blood Pressure 182/100 H 02/04/25 21:39 Pulse Oximetry 100 02/04/25 21:39 Oxygen Delivery Room Air 02/04/25 21:39 Temperature 36.7 C 02/04/25 21:39 Pulse Rate 81 02/05/25 03:45 Respiratory Rate 17 02/05/25 03:45 Blood Pressure 158/93 H 02/05/25 03:20 Pulse Oximetry 98 02/05/25 03:45 Oxygen Delivery Room Air 02/04/25 21:39 <Elsie Chandler PA-C - Last Filed: 02/05/25 03:26> Vital Signs Temperature 36.7 C 02/04/25 21:39 Pulse Rate 106 H 02/04/25 21:39 Respiratory Rate 18 02/04/25 21:39 Blood Pressure 182/100 H 02/04/25 21:39 Pulse Oximetry 100 02/04/25 21:39 Oxygen Delivery Room Air 02/04/25 21:39 Temperature 36.7 C 02/04/25 21:39 Pulse Rate 81 02/05/25 03:45 Respiratory Rate 17 02/05/25 03:45 Blood Pressure 158/93 H 02/05/25 03:20 Pulse Oximetry 98 02/05/25 03:45 Oxygen Delivery Room Air 02/04/25 21:39 <Sandeep Vivas MD - Last Filed: 02/05/25 05:19> Lab Data Lab results reviewed: Yes I reviewed the patient's lab results. <MALCOM Han Last Filed: 02/05/25 03:26> Result diagrams: 02/04/25 21:57 02/04/25 21:57 <Elsie Chandler PA-C - Last Filed: 02/05/25 03:26> Labs: Lab Results 02/04/25 02/05/25 02/05/25 Range/Units 21:57 00:31 00:34 WBC 6.9 (4.5-10.0) K/mm3 RBC 3.93 L (4.6-6.20) M/mm3 Hgb 14.4 (14.0-18.0) g/dL Hct 40.8 L (42.0-52.0) % MCV 103.8 H (80-100) fl MCH 36.6 H (26-34) pg MCHC 35.3 (32-36) g/dl RDW 13.1 (11.5-14.5) % Plt Count 212 (150-375) k/mm3 MPV 8.6 (7.4-10.4) fl Immature Gran % (Auto) 0.1 (0-0.5) % Neut % (Auto) 65.1 (45.5-73.1) % Lymph % (Auto) 25.0 (18.3-44.2) % Garza % (Auto) 9.1 H (2.6-8.5) % Eos % (Auto) 0.3 (0-4.4) % Baso % (Auto) 0.4 (0.2-1.2) % Lymph # (Auto) 1.72 (0.9-3.2) K/mm3 Garza # (Auto) 0.6 (0.1-0.6) K/mm3 Eos # (Auto) 0.0 (0-0.3) K/mm3 Baso # (Auto) 0.0 (0.0-0.1) K/mm3 Abs Immat Gran (auto) 0.01 (0.00-0.031) K/mm3 Absolute Neuts (auto) 4.5 (1.3-6.7) K/mm3 Absolute Nucleated RBC 0.000 (0.0-0.012) K/mm3 Nucleated RBC % 0.0 (0.0-0.2) % PT 13.3 (11.1-14.7) Seconds INR 1.0 APTT 25.5 (22.3-36.8) Seconds Sodium 135 L (137-145) mmol/L Potassium 3.6 (3.4-5.0) mmol/L Chloride 99 (98-107) mmol/L Carbon Dioxide 28 (22-30) mmol/L Anion Gap 8 (4-12) mmol/L BUN 8 L (9-20) mg/dL Creatinine 0.82 (0.7-1.3) mg/dL Estim Creat Clear Calc 74 ml/min Estimated GFR > 60 (59 - ) Glucose 114 H (65-110) mg/dL POC Capillary Glucose 106 H (65-105) mg/dl Calcium 9.6 (8.4-10.2) mg/dL Magnesium (1.6-2.3) mg/dL Total Bilirubin 0.7 (0.2-1.3) mg/dL AST 97 H (17-59) U/L ALT 81 H (6-50) U/L Alkaline Phosphatase 74 (38-126) U/L Troponin I < 0.012 < 0.012 (0.000-0.034) ng/mL Total Protein 6.9 (6.3-8.2) g/dL Albumin 4.3 (3.5-5.1) g/dL Lipase 110 (23-300) U/L TSH (Reflex) 2.380 (0.465-4.68) uIU/mL 02/05/25 Range/Units 00:35 WBC (4.5-10.0) K/mm3 RBC (4.6-6.20) M/mm3 Hgb (14.0-18.0) g/dL Hct (42.0-52.0) % MCV (80-100) fl MCH (26-34) pg MCHC (32-36) g/dl RDW (11.5-14.5) % Plt Count (150-375) k/mm3 MPV (7.4-10.4) fl Immature Gran % (Auto) (0-0.5) % Neut % (Auto) (45.5-73.1) % Lymph % (Auto) (18.3-44.2) % Garza % (Auto) (2.6-8.5) % Eos % (Auto) (0-4.4) % Baso % (Auto) (0.2-1.2) % Lymph # (Auto) (0.9-3.2) K/mm3 Garza # (Auto) (0.1-0.6) K/mm3 Eos # (Auto) (0-0.3) K/mm3 Baso # (Auto) (0.0-0.1) K/mm3 Abs Immat Gran (auto) (0.00-0.031) K/mm3 Absolute Neuts (auto) (1.3-6.7) K/mm3 Absolute Nucleated RBC (0.0-0.012) K/mm3 Nucleated RBC % (0.0-0.2) % PT (11.1-14.7) Seconds INR APTT (22.3-36.8) Seconds Sodium (137-145) mmol/L Potassium (3.4-5.0) mmol/L Chloride (98-107) mmol/L Carbon Dioxide (22-30) mmol/L Anion Gap (4-12) mmol/L BUN (9-20) mg/dL Creatinine (0.7-1.3) mg/dL Estim Creat Clear Calc ml/min Estimated GFR (59 - ) Glucose (65-110) mg/dL POC Capillary Glucose (65-105) mg/dl Calcium (8.4-10.2) mg/dL Magnesium 1.2 L (1.6-2.3) mg/dL Total Bilirubin (0.2-1.3) mg/dL AST (17-59) U/L ALT (6-50) U/L Alkaline Phosphatase (38-126) U/L Troponin I (0.000-0.034) ng/mL Total Protein (6.3-8.2) g/dL Albumin (3.5-5.1) g/dL Lipase (23-300) U/L TSH (Reflex) (0.465-4.68) uIU/mL <Elsie Chandler PA-C - Last Filed: 02/05/25 03:26> Lab Results 02/04/25 02/05/25 02/05/25 Range/Units 21:57 00:31 00:34 WBC 6.9 (4.5-10.0) K/mm3 RBC 3.93 L (4.6-6.20) M/mm3 Hgb 14.4 (14.0-18.0) g/dL Hct 40.8 L (42.0-52.0) % MCV 103.8 H (80-100) fl MCH 36.6 H (26-34) pg MCHC 35.3 (32-36) g/dl RDW 13.1 (11.5-14.5) % Plt Count 212 (150-375) k/mm3 MPV 8.6 (7.4-10.4) fl Immature Gran % (Auto) 0.1 (0-0.5) % Neut % (Auto) 65.1 (45.5-73.1) % Lymph % (Auto) 25.0 (18.3-44.2) % Garza % (Auto) 9.1 H (2.6-8.5) % Eos % (Auto) 0.3 (0-4.4) % Baso % (Auto) 0.4 (0.2-1.2) % Lymph # (Auto) 1.72 (0.9-3.2) K/mm3 Garza # (Auto) 0.6 (0.1-0.6) K/mm3 Eos # (Auto) 0.0 (0-0.3) K/mm3 Baso # (Auto) 0.0 (0.0-0.1) K/mm3 Abs Immat Gran (auto) 0.01 (0.00-0.031) K/mm3 Absolute Neuts (auto) 4.5 (1.3-6.7) K/mm3 Absolute Nucleated RBC 0.000 (0.0-0.012) K/mm3 Nucleated RBC % 0.0 (0.0-0.2) % PT 13.3 (11.1-14.7) Seconds INR 1.0 APTT 25.5 (22.3-36.8) Seconds Sodium 135 L (137-145) mmol/L Potassium 3.6 (3.4-5.0) mmol/L Chloride 99 (98-107) mmol/L Carbon Dioxide 28 (22-30) mmol/L Anion Gap 8 (4-12) mmol/L BUN 8 L (9-20) mg/dL Creatinine 0.82 (0.7-1.3) mg/dL Estim Creat Clear Calc 74 ml/min Estimated GFR > 60 (59 - ) Glucose 114 H (65-110) mg/dL POC Capillary Glucose 106 H (65-105) mg/dl Calcium 9.6 (8.4-10.2) mg/dL Magnesium (1.6-2.3) mg/dL Total Bilirubin 0.7 (0.2-1.3) mg/dL AST 97 H (17-59) U/L ALT 81 H (6-50) U/L Alkaline Phosphatase 74 (38-126) U/L Troponin I < 0.012 < 0.012 (0.000-0.034) ng/mL Total Protein 6.9 (6.3-8.2) g/dL Albumin 4.3 (3.5-5.1) g/dL Lipase 110 (23-300) U/L TSH (Reflex) 2.380 (0.465-4.68) uIU/mL 02/05/25 Range/Units 00:35 WBC (4.5-10.0) K/mm3 RBC (4.6-6.20) M/mm3 Hgb (14.0-18.0) g/dL Hct (42.0-52.0) % MCV (80-100) fl MCH (26-34) pg MCHC (32-36) g/dl RDW (11.5-14.5) % Plt Count (150-375) k/mm3 MPV (7.4-10.4) fl Immature Gran % (Auto) (0-0.5) % Neut % (Auto) (45.5-73.1) % Lymph % (Auto) (18.3-44.2) % Garza % (Auto) (2.6-8.5) % Eos % (Auto) (0-4.4) % Baso % (Auto) (0.2-1.2) % Lymph # (Auto) (0.9-3.2) K/mm3 Garza # (Auto) (0.1-0.6) K/mm3 Eos # (Auto) (0-0.3) K/mm3 Baso # (Auto) (0.0-0.1) K/mm3 Abs Immat Gran (auto) (0.00-0.031) K/mm3 Absolute Neuts (auto) (1.3-6.7) K/mm3 Absolute Nucleated RBC (0.0-0.012) K/mm3 Nucleated RBC % (0.0-0.2) % PT (11.1-14.7) Seconds INR APTT (22.3-36.8) Seconds Sodium (137-145) mmol/L Potassium (3.4-5.0) mmol/L Chloride (98-107) mmol/L Carbon Dioxide (22-30) mmol/L Anion Gap (4-12) mmol/L BUN (9-20) mg/dL Creatinine (0.7-1.3) mg/dL Estim Creat Clear Calc ml/min Estimated GFR (59 - ) Glucose (65-110) mg/dL POC Capillary Glucose (65-105) mg/dl Calcium (8.4-10.2) mg/dL Magnesium 1.2 L (1.6-2.3) mg/dL Total Bilirubin (0.2-1.3) mg/dL AST (17-59) U/L ALT (6-50) U/L Alkaline Phosphatase (38-126) U/L Troponin I (0.000-0.034) ng/mL Total Protein (6.3-8.2) g/dL Albumin (3.5-5.1) g/dL Lipase (23-300) U/L TSH (Reflex) (0.465-4.68) uIU/mL <Sandeep Vivas MD - Last Filed: 02/05/25 05:19> Imaging Data Attestation: I personally reviewed and interpreted this imaging study as follows: < Elsie Chandler PA-C - Last Filed: 02/05/25 03:26> My impression: CXR: No acute cardiopulmonary abnormality <MALCOM Han Last Filed: 02/05/25 03:26> Radiologist's impression: STAT RAD CT brain: No evidence of acute intracranial pathology. Small popcorn type calcification posterior to the right lateral ventricle atrium, which may represent a cavernous malformation without evidence of recent hemorrhage. Recommend MRI of the brain for further evaluation. No comparisons. <Elsie Chandler PA-C - Last Filed: 02/05/25 03:26> ECG Data EKG #1: Attestation: I personally reviewed and interpreted this ECG as follows: <MALCOM Han Last Filed: 02/05/25 03:26> ECG completion date: 02/04/25 <MALCOM Han Last Filed: 02/05/25 03:26> ECG completion time: 21:51 <MALCOM Han Last Filed: 02/05/25 03:26> EKG Interpretation: normal rate (89), sinus rhythm, non-specific ST changes and other (baseline artifact) <MALCOM Han Last Filed: 02/05/25 03:26> Discharge Plan Discharge Clinical Impression: Labile hypertension, Hypomagnesemia, Cavernous malformation Headache Qualifiers: Headache type: unspecified Headache chronicity pattern: acute headache I ntractability: not intractable Qualified Code(s): R51.9 - Headache, unspecified <MALCOM Han Last Filed: 02/05/25 03:26> Patient Disposition: Still a Patient <MALCOM Han Last Filed: 02/05/25 03:26> Condition: Stable <MALCOM Han Last Filed: 02/05/25 03:26>
[2025-02-05 01:02] LABS: Magnesium 1.2 mg/dL (1.6-2.3)
[2025-02-05] MEDS: SODIUM CHLORIDE 0.9% IV 1,000 ML 999 ML IV CONT (01:05)
[2025-02-05 01:12] LABS: Troponin I < 0.012 ng/mL (0.000-0.034)
[2025-02-05 01:20] LABS: Thyroid Stimulating Hormone Reflex 2.380 uIU/mL (0.465-4.68)
[2025-02-05] MEDS: MAGNESIUM SULF 2 GM/WATER 50ML 2 GM/50 ML BAG IVPB ×2 (01:42→03:40)
[2025-02-05] MEDS: LORazepam (*CRX) 0.5 MG TABLET PO ×2 (01:52→13:55)
[2025-02-05] MEDS: diazePAM INJ (*CRX) 10 MG/2 ML SYRINGE 5 MG IV PUSH (03:40)
--- NOTE | 2025-02-05 03:56 | WPCEDHO ---
ED Hand Off Checklist All vitals saved: YES IV Site documented: YES All med administrations documented: YES Triage Note Triage Note Pt arrives from home with c/o 02/04/25 22:59 HTN intermittent x 1 week. States takes Olmesartan/Medoxomil once daily around lunch, which he did take today. States that tonight BP elevated again and having L arm pain, tingling to L fingers, nausea and headache. 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 RN agrees with this assessment. Allergies prednisone Allergy (Intermediate, Verified 02/04/25 21:39) Rash Family History (Last Reviewed 02/05/25 @ 01:30 by Elsie Chandler PA-C) Mother Depression Grandparent Lung cancer Hypertension Heart disease Cerebrovascular accident Active Medications including assessments/comments Magnesium Sulfate (Magnesium Sulf 2 Gm/Water 50ml) 2 gm in 50 mls @ 50 mls/hr IVPB ONCE ONE Stop: 02/05/25 04:11 Last Admin: 02/05/25 03:40 Dose: 50 mls/hr Documented By: JHONATHAN Co-signed By: PATRICIA Infusion/Titration Document 02/05/25 03:40 JHONATHAN (Rec: 02/05/25 03:40 JHONATHAN [id number]) Co-signed By Omid Bentley RN Intake IV Site Peripheral Access Right Antecubital Container Volume 50 Waste Amount 0 Dosing Infusion Rate 50 Increase/Decrease Started Elapsed Time Elapsed Time ( 0m minutes) Magnesium Sulfate Infusion Document 02/05/25 03:40 JHONATHAN (Rec: 02/05/25 03:40 JHONATHAN [id number]) Co-signed By Omid Bentley RN Infusion Action Magnesium Sulfate Initiated Infusion Action Administered/Completed Medications Discontinued Medications Aspirin (Aspirin 81 Mg Chewable Tablet) 324 mg PO ONCE STA Stop: 02/04/25 21:46 Last Admin: 02/04/25 22:43 Dose: 243 mg Documented By: TATE Comments: Pt took baby aspirin at home Diazepam (Diazepam Inj (*Crx) 10 Mg/2 Ml Syringe) 5 mg IV PUSH ONCE ONE Stop: 02/05/25 03:13 Last Admin: 02/05/25 03:40 Dose: 5 mg Documented By: JHONATHAN Sodium Chloride (Normal Saline Iv) 1,000 mls @ 999 mls/hr IV CONT .Q1H1M STA Stop: 02/05/25 01:30 Last Infusion: 02/05/25 02:14 Dose: Infused Documented By: Admin: 02/05/25 01:05 Dose: 999 mls/hr Documented By: JHONATHAN Magnesium Sulfate (Magnesium Sulf 2 Gm/Water 50ml) 2 gm in 50 mls @ 50 mls/hr IVPB ONCE ONE Stop: 02/05/25 02:12 Last Infusion: 02/05/25 02:39 Dose: Infused Documented By: Admin: 02/05/25 01:42 Dose: 50 mls/hr Documented By: JHONATHAN Co-signed By: EARLENE Labetalol HCl (Labetalol Hcl Inj 100 Mg/20 Ml Vial) 20 mg IV PUSH ONCE ONE Stop: 02/05/25 02:38 Last Admin: 02/05/25 02:42 Dose: 20 mg Documented By: RITIKA Lorazepam (Lorazepam (*Crx) 0.5 Mg Tablet) 0.5 mg PO ONCE STA Stop: 02/05/25 01:48 Last Admin: 02/05/25 01:52 Dose: 0.5 mg Documented By: JHONATHAN Interventions/Assessments General Assessment Start: 02/04/25 21:39 Freq: Status: Active Protocol: Document 02/04/25 23:01 JHONATHAN (Rec: 02/04/25 23:02 JHONATHAN [id number]) GA Neurological Assessment Neurological Yes Assessment WNL Level of Alert,Awake Consciousness Arousable to Verbal Orientation Oriented to Person,Oriented to Place,Oriented to Time Behavior Appropriate,Cooperative GA HEENT Assessment HEENT Assessment WNL Yes Neck Movement Limited Range of Motion Head and Neck neck stiffness, possibly from recent golf outing. Comments GA Cardiovascular Assessment Cardiovascular Nausea,Tingling Symptoms Skin Description Normal Color Heart Sounds Normal Jugular Vein None Distention IV / Saline Lock, Insert Start: 02/04/25 21:45 Freq: STAT Status: Active Protocol: Document 02/05/25 01:00 JHONATHAN (Rec: 02/05/25 01:00 JHONATHAN [id number]) IV Assessment Peripheral Access Right Antecubital IV Catheter Access Initiated IV Insertion Date 02/05/25 IV Insertion Time 01:00 Catheter Gauge 20 IV Site Assessment WNL IV Care and WNL Maintenance PA: Neurological Assessment Start: 02/05/25 02:48 Freq: Status: Active Protocol: Document 02/05/25 02:48 [facility] (Rec: 02/05/25 02:48 [facility] [id number]) Neurological Assessment Level of Alert,Awake Consciousness Arousable to Verbal Orientation Oriented to Person,Oriented to Place,Oriented to Time Neurological Tingling/Numbness Symptoms Behavior Appropriate,Cooperative Memory Description Intact,Alf Intact,Short Term Intact Hallucination Type None Facial Symmetry Symmetrical Speech Pattern Clear Ability to Swallow Normal [place] Coma Scale Eyes Open Verbal Oriented and Alert Motor Follows Commands Uriah Coma Total 15 Score Last Vital Signs Temperature 98.0 F 02/04/25 21:39 Pulse Rate 78 02/05/25 02:45 Respiratory Rate 18 02/05/25 02:45 Pulse Oximetry 97 02/05/25 02:45 Blood Pressure 173/95 H 02/05/25 02:40 Blood Pressure Mean 118 02/05/25 02:40 Blood Pressure Position Supine 02/05/25 01:44 Oxygen Delivery Room Air 02/04/25 21:39 Weight 75 kg 02/04/25 22:59 Last Result - Abnormals Only RBC 3.93 M/mm3 (4.6-6.20) L 02/04/25 21:57 Hct 40.8 % (42.0-52.0) L 02/04/25 21:57 MCV 103.8 fl (80-100) H 02/04/25 21:57 MCH 36.6 pg (26-34) H 02/04/25 21:57 [place] % (Auto) 9.1 % (2.6-8.5) H 02/04/25 21:57 Sodium 135 mmol/L (137-145) L 02/04/25 21:57 BUN 8 mg/dL (9-20) L 02/04/25 21:57 Glucose 114 mg/dL (65-110) H 02/04/25 21:57 POC Capillary Glucose 106 mg/dl (65-105) H 02/05/25 00:31 Magnesium 1.2 mg/dL (1.6-2.3) L 02/05/25 00:35 AST 97 U/L (17-59) H 02/04/25 21:57 ALT 81 U/L (6-50) H 02/04/25 21:57 Most Recent Suicide Severity Rating Suicide Severity Rating NO RISK INDICATED 02/04/25 22:59
--- NOTE | 2025-02-05 04:01 | PC.NURSE ---
Floor RN ok'd pt to be brought to floor at this time, all questions answered.
[2025-02-05 05:08] LABS: Troponin I < 0.012 ng/mL (0.000-0.034)
--- NOTE | 2025-02-05 10:09 | P.HP_ITS ---
H&P: HPI History of Present Illness Date/Time: 02/05/25 10:09 Chief Complaint: Uncontrolled hypertension Narrative: 64-year-old with hypertension, hyperlipidemia presents the hospital with uncontrolled hypertension. He states that he has been compliant with his blood pressure medications however is blood pressure still been elevated to 180/100. He also complains of fogginess, fatigue, and some hand tingling use. Patient states that his primary care provider decreased his blood pressure medications about a year ago, As he was doing well. Patient states that recently he has been very anxious due to being retired and board. He is having trouble sleeping because of this. 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 Recommend MRI. Brain MRI pending Review of Systems Review of Systems: 12 systems were reviewed and are negativ e except for as per HPI. [facility] Past Medical History Medical History Allergies Hyperlipidemia Benign essential HTN Perianal abscess Surgical History Surgical History History of rectal surgery Rectal exam under anesthesia with placement of draining seton 06/03/23 Family History Family History Mother Depression Grandparent Lung cancer Hypertension Heart disease Cerebrovascular accident Social History Social History Social History: Smoking status: Never smoker Tobacco type: smokeless tobacco Second hand tobacco smoke exposure: No Alcohol intake: current Drinks per week: 2 Substance use: never Substance use type: does not use Do You Feel Safe in your Home?: Yes Lack of Transportation: No Lack of Food: Never True Current Housing: I Have Housing Concerned About Future Housing: No Difficulty Paying Gas/Electric Bills: No Difficulty Paying for Meds: No Currently Unemployed: No Education: Master's Degree or Higher Difficulty w/ Childcare or Family Care: No Living arrangements: with family Occupation/Education: retired Gender identity (if verbalized by the patient): Male Sexual Orientation (if Verbalized by the Patient): Straight or Heterosexual Spiritual care concerns: No Meds Home Medications and Allergies Home Medications ?Medication ?Instructions ?Recorded ?Confirmed ?Type loratadine 10 mg chewable tablet 10 mg PO DAILY PRN al lergy symptoms 05/08/24 02/05/25 History (Claritin) atorvastatin 40 mg tablet 40 mg PO DAILY #90 tabs 06/0502/05/25 Rx olmesartan 20 mg tablet 20 mg PO DAILY #90 tabs 11/1302/05/25 Rx magnesium oxide 400 mg PO DAILY #7 tabs 01/13 08/05 Rx Allergies Allergy/AdvReac Type Severity Reaction Status Date / Time prednisone Allergy Intermediate Rash Verified 02/05/25 04:32 Vital Signs Vital Signs - 24 hr 02/04/25 21:39 02/04/25 22:46 02/04/25 23:01 Temperature 98.0 F Pulse Rate 106 H 98 92 Respiratory Rate 18 17 17 Blood Pressure 182/100 H 167/83 H 159/82 H Pulse Oximetry 100 99 99 Oxygen Delivery Room Air 02/04/25 23:03 02/04/25 23:15 02/04/25 23:30 Temperature Pulse Rate 94 89 84 Respiratory Rate 12 17 17 Blood Pressure 159/82 H 155/83 H 165/88 H Pulse Oximetry 99 97 98 Oxygen Delivery 02/04/25 23:44 02/04/25 23:46 02/05/25 00:00 Temperature Pulse Rate 81 84 80 Respiratory Rate 16 21 H 14 Blood Pressure 163/88 H 160/98 H 162/98 H Pulse Oximetry 99 100 98 Oxygen Delivery 02/05/25 00:15 02/05/25 00:30 02/05/25 01:30 Temperature Pulse Rate 83 84 77 Respiratory Rate 17 16 19 Blood Pressure 157/98 H 172/101 H Pulse Oximetry 97 96 100 Oxygen Delivery 02/05/25 01:44 02/05/25 01:46 02/05/25 02:02 Temperature Pulse Rate 80 80 78 Respiratory Rate 20 20 17 Blood Pressure 167/95 H Pulse Oximetry 98 98 97 Oxygen Delivery 02/05/25 02:15 02/05/25 02:20 02/05/25 02:30 Temperature Pulse Rate 83 83 84 Respiratory Rate 22 H 18 16 Blood Pressure 173/92 H Pulse Oximetry 97 97 96 Oxygen Delivery 02/05/25 02:40 02/05/25 02:45 02/05/25 03:00 Temperature Pulse Rate 83 78 76 Respiratory Rate 18 18 16 Blood Pressure 173/95 H 167/95 H Pulse Oximetry 96 97 95 Oxygen Delivery 02/05/25 03:01 02/05/25 03:15 02/05/25 03:20 Temperature Pulse Rate 76 77 75 Respiratory Rate 22 H 19 15 Blood Pressure 158/93 H Pulse Oximetry 96 96 Oxygen Delivery 02/05/25 03:30 02/05/25 03:45 02/05/25 06:00 Temperature 97.0 F L Pulse Rate 75 81 77 Respiratory Rate 17 17 18 Blood Pressure 147/87 H Pulse Oximetry 97 98 96 Oxygen Delivery Exam Narrative: General: well appearing, appears stated age. HEENT: normocephalic, atraumatic. Mucous membranes moist. EOMI, PERRLA, bilateral sclera anicteric, no conjunctival injection. Neck supple without JVD, lymphadenopathy, or bruit. Respiratory: clear bilaterally. No rales/rhonic/wheezes. Cardiovascular: Regular rate and rhythm, normal S1-S2. No murmurs, rubs, or clicks. PMI is nondisplaced, capillary refill less than 3 second. Abdomen: Soft, round, no pulsatile masses, nondistended and nontender. No rebound, no guarding. Bowel sounds present to all four quadrants. No high pitch or tinkling sounds, resonant to percussion. Extremities: No cyanosis, clubbing, or edema present. Pulses are palpable 2/2. Active ROM to all four extremities. Neuro: Alert and orientated x 4. PERRLA. Cranial nerves 2-12 intact without foca l deficit. Skin: Warm, dry, and intact, without rash, erythema, or lesion. Psych: Appears anxious H&P: Results Labs Labs: Short CBC 02/04/25 Range/Units 21:57 WBC 6.9 (4.5-10.0) K/mm3 Hgb 14.4 (14.0-18.0) g/dL Hct 40.8 L (42.0-52.0) % Plt Count 212 (150-375) k/mm3 [facility] 02/04/25 21:57 Sodium 135 L Potassium 3.6 Chloride 99 Carbon Dioxide 28 BUN 8 L Creatinine 0.82 Glucose 114 H Calcium 9.6 Cardiac Enzymes 02/04/25 02/05/25 02/05/25 Range/Units 21:57 00:34 04:38 Troponin I < 0.012 < 0.012 < 0.012 (0.000-0.034) ng/mL Liver Function 02/04/25 Range/Units 21:57 Total Bilirubin 0.7 (0.2-1.3) mg/dL AST 97 H (17-59) U/L ALT 81 H (6-50) U/L Alkaline Phosphatase 74 (38-126) U/L Albumin 4.3 (3.5-5.1) g/dL Assessment and Plan Assessment and plan (1) Cavernous malformation: Code(s): Q28.3 - Other malformations of cerebral vessels Status: Acute Assessment and Plan: CT showing 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 MRI pending Patient will need tight control anxiety and blood pressure Depending on MRI read may need to transfer to [facility] or wash U Patient aware (2) Hypertensive urgency: Code(s): I16.0 - Hypertensive urgency Status: Acute Assessment and Plan: Restart antihypertensive Hydralazine p.r.n. (3) Numbness: Code(s): R20.0 - Anesthesia of skin Status: Acute Assessment and Plan: Improved DC telemetry (4) Anxiety: Code(s): F41.9 - Anxiety disorder, unspecified Status: Acute Assessment and Plan: Scheduled Ativan to help with anxiety a blood pressure Quality VTE Prophylaxis VTE prophylaxis: mechanical ordered Hospitalist MIPS Advance Care Plan I have confirmed that the patient's Advanced Care Plan is present, code status is documented, or surrogate decision maker is listed in patient medical record.: Yes Medication Reconciliation I have utilized all available resources to obtain, update and review the patients current medications (includes all prescriptions, OTC, herbals, cannabis, and nutritional supplements).: Yes
[2025-02-05] MEDS: ACETAMINOPHEN 325 MG TABLET 650 MG PO (11:11)
[2025-02-05] MEDS: ATORVASTATIN 40 MG TABLET PO (11:11)
[2025-02-05] MEDS: OLMESARTAN MEDOXOMIL 20 MG TABLET 40 MG PO (13:56)
--- NOTE | 2025-02-05 14:55 | WPDNEURCNPN ---
Assessment and Plan Assessment and plan (1) Hypertensive urgency: Code(s): I16.0 - Hypertensive urgency Status: Acute (2) Cavernous malformation: Code(s): Q28.3 - Other malformations of cerebral vessels Status: Acute Plan 1. Hypertension 2. 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 Plan to overweight the MRI before any further recommendations. Consult date: 02/05/25 HPI: Stefan Carr is a 64 year old male Has been admitted to the hospital through the emergency room for the complaints of intermittent episodes of elevated blood pressure, In the range of 180s over 100s he has been taking his antihypertensive medication regularly but on the day of the visit to the ER he felt somewhat off foggy and fatigued when his blood pressure was recorded as 180s over 110s at home additionally he noted tingling sensation in his left finger tips throughout the day and discomfort in his left upper extremity along with headaches he gave no history of any chest discomfort. His medications included loratadine 10mg daily and is allergic to prednisone. His past history is consistent with the hypertension, being never smoker, and only 2 drinks per week currently. Initial exam in the emergency room was nonfocal. His vital signs were abnormal with pulse of 106 blood pressure 182/100 though it came down subsequently to 158/93. His initial CBC was normal, master scan was normal, his CT scan revealed possible cavernous malformation of the right parietal lobe for which MRI was recommended. Chest x-ray was negative. Review of Systems Review of Systems: All systems reviewed & are unremarkable except as noted in HPI and below PMFSH Past Medical History Medical History Allergies Hyperlipidemia Benign essential HTN Perianal abscess Surgical History Surgical History History of rectal surgery Rectal exam under anesthesia with placement of draining seton 06/03/23 Family History Family History Mother Depression Grandparent Lung cancer Hypertension Heart disease Cerebrovascular accident Social History Social History Social History: Smoking status: Never smoker Tobacco type: smokeless tobacco Second hand tobacco smoke exposure: No Alcohol intake: current Drinks per week: 2 Substance use: never Substance use type: does not use Do You Feel Safe in your Home?: Yes Lack of Transportation: No Lack of Food: Never True Current Housing: I Have Housing Concerned About Future Housing: No Difficulty Paying Gas/Electric Bills: No Difficulty Paying for Meds: No Currently Unemployed: No Education: Master's Degree or Higher Difficulty w/ Childcare or Family Care: No Living arrangements: with family Occupation/Education: retired Gender identity (if verbalized by the patient): Male Sexual Orientation (if Verbalized by the Patient): Straight or Heterosexual Spiritual care concerns: No Meds Home Medications and Allergies Home Medications ?Medication ?Instructions ?Recorded ?Confirmed ?Type loratadine 10 mg chewable tablet 10 mg PO DAILY PRN allergy symptoms 05/08/24 02/05/25 History (Claritin) atorvastatin 40 mg tablet 40 mg PO DAILY #90 tabs 08/14/24 02/05/25 Rx olmesartan 20 mg tablet 20 mg PO DAILY #90 tabs 12/06/24 02/05/25 Rx magnesium oxide 400 mg PO DAILY #7 tabs 02/05/25 Rx Allergies Allergy/AdvReac Type Severity Reaction Status Date / Time prednisone Allergy Intermediate Rash Verified 02/05/25 04:32 Vital Signs Vital Signs - 24 hr 02/04/25 21:39 02/04/25 22:46 02/04/25 23:01 Temperature 36.7 C Pulse Rate 106 H 98 92 Respiratory Rate 18 17 17 Blood Pressure 182/100 H 167/83 H 159/82 H Pulse Oximetry 100 99 99 Oxygen Delivery Room Air 02/04/25 23:03 02/04/25 23:15 02/04/25 23:30 Temperature Pulse Rate 94 89 84 Respiratory Rate 12 17 17 Blood Pressure 159/82 H 155/83 H 165/88 H Pulse Oximetry 99 97 98 Oxygen Delivery 02/04/25 23:44 02/04/25 23:46 02/05/25 00:00 Temperature Pulse Rate 81 84 80 Respiratory Rate 16 21 H 14 Blood Pressure 163/88 H 160/98 H 162/98 H Pulse Oximetry 99 100 98 Oxygen Delivery 02/05/25 00:15 02/05/25 00:30 02/05/25 01:30 Temperature Pulse Rate 83 84 77 Respiratory Rate 17 16 19 Blood Pressure 157/98 H 172/101 H Pulse Oximetry 97 96 100 Oxygen Delivery 02/05/25 01:44 02/05/25 01:46 02/05/25 02:02 Temperature Pulse Rate 80 80 78 Respiratory Rate 20 20 17 Blood Pressure 167/95 H Pulse Oximetry 98 98 97 Oxygen Delivery 02/05/25 02:15 02/05/25 02:20 02/05/25 02:30 Temperature Pulse Rate 83 83 84 Respiratory Rate 22 H 18 16 Blood Pressure 173/92 H Pulse Oximetry 97 97 96 Oxygen Delivery 02/05/25 02:40 02/05/25 02:45 02/05/25 03:00 Temperature Pulse Rate 83 78 76 Respiratory Rate 18 18 16 Blood Pressure 173/95 H 167/95 H Pulse Oximetry 96 97 95 Oxygen Delivery 02/05/25 03:01 02/05/25 03:15 02/05/25 03:20 Temperature Pulse Rate 76 77 75 Respiratory Rate 22 H 19 15 Blood Pressure 158/93 H Pulse Oximetry 96 96 Oxygen Delivery 02/05/25 03:30 02/05/25 03:45 02/05/25 06:00 Temperature 36.1 C L Pulse Rate 75 81 77 Respiratory Rate 17 17 18 Blood Pressure 147/87 H Pulse Oximetry 97 98 96 Oxygen Delivery 02/05/25 08:00 02/05/25 08:00 02/05/25 12:00 Temperature Pulse Rate 91 67 Respiratory Rate Blood Pressure Pulse Oximetry Oxygen Delivery Room Air 02/05/25 14:00 Temperature 36.6 C Pulse Rate 82 Respiratory Rate 16 Blood Pressure 150/99 H Pulse Oximetry 96 Oxygen Delivery Exam Narrative: Revealed him to be awake alert cooperative in no obvious acute distress, normocephalic with no cranial bruits, neck supple with no meningeal irritation, heart regular with no murmur, lungs clear, abdomen is soft nontender, neurological examination reveals normal mental status, normal speech, cranial examination normal, motor and sensory exam normal, reflexes symmetrical and plantars downgoing, with no evidence of cerebellar dysfunction Results Labs 02/04/25 21:57 02/04/25 21:57 Labs: Short CBC 02/04/25 Range/Units 21:57 WBC 6.9 (4.5-10.0) K/mm3 Hgb 14.4 (14.0-18.0) g/dL Hct 40.8 L (42.0-52.0) % Plt Count 212 (150-375) k/mm3 [facility] 02/04/25 21:57 Sodium 135 L Potassium 3.6 Chloride 99 Carbon Dioxide 28 BUN 8 L Creatinine 0.82 Glucose 114 H Calcium 9.6 Cardiac Enzymes 02/04/25 02/05/25 02/05/25 Range/Units 21:57 00:34 04:38 Troponin I < 0.012 < 0.012 < 0.012 (0.000-0.034) ng/mL Liver Function 02/04/25 Range/Units 21:57 Total Bilirubin 0.7 (0.2-1.3) mg/dL AST 97 H (17-59) U/L ALT 81 H (6-50) U/L Alkaline Phosphatase 74 (38-126) U/L Albumin 4.3 (3.5-5.1) g/dL
--- NOTE | 2025-02-05 17:59 | P.RRN_ITS ---
Critical Care Event Note Summary Code activated: No Narrative: Spoke to neuro surgery about MRI results requesting transfer to higher level of care as patient has a head bleed. We do not manage had leads at this hospital. Call out to [facility] at 6:00 p.m.. Call out to at 6:11 p.m. recommending 2 hour blood pressure checks, l abetalol p.r.n. for blood pressure over 10 systolic or over 90 diastolic. If given more than 3 doses will transfer to ICU for nicardipine drip. Patient will need frequent neuro checks. [address] Ochoa of [facility] has accepted the patient to step-down with goals of having his blood pressure under 160 if the patient does require drip he will need to go to ICU. Her surgeon Dr. Ochoa would SBP under 160 Nursing, lead warehouse associate updated At this time patient's vital signs are stable he is slightly hypertensive 150/100 will give a dose of IV labetalol. MRI brain with and without contrast: DATE: 02/05/2025. INDICATION: 64-year-old with history of hypertension. Suspected cavernous malformation of right parietal lobe, periventricular location on CT head. Headache. TECHNIQUE: Axial, coronal and sagittal images of including postcontrast examination with MultiHance IV were obtained. COMPARISON: CT head without contrast dated 02/04/2025. FINDINGS: No acute infarct on the diffusion sequence. On the T2*gradient sequence, low-density lesion posterior to the occipital horn of right lateral ventricle in the right parietal lobe corresponding to the small hyperdense focus in the same area noted on CT scan. This area measures 9 mm in diameter on the T2*gradient sequence. No evidence of ventriculomegaly or midline shift. No chronic ischemic change. On the postcontrast series, faintly enhancing venous angioma is noted in the same region. No evidence of AV malformation. No midline shift. Major arteries of [place] are patent. IMPRESSION: 1. 5 to 6 mm size lesion posterior to the occipital horn of the right lateral ventricle corresponding to the hyperdense focus on CT scan of 02/04/2025 is identified on MRI this is suggestive of a small hematoma. There is evidence of venous angioma noted in the same location. No evidence of AV malformation. 2. No other focal intracranial abnormalities are seen. No acute ischemia. No evidence of neoplasm. This case had a high probability of a clinically significant, sudden, or life threatening deterioration of this patient's condition which required my full and direct attention, intervention and personal management. Critical Care Time Critical Care Time: Yes Total Critical Care Time: 78 minutes Included talking to patient, family, nursing, intense this and neuro surgery at [facility] Due to a high probability of clinically significant, life threatening deterioration, the patient required my highest level of preparedness to intervene emergently and I personally spent this critical care time directly and personally managing the patient. This critical care time included obtaining a history; examining the patient; pulse oximetry; ordering and review of studies; arranging urgent treatment with development of a management plan; evaluation of patient's response to treatment; frequent reassessment; and discussions with other providers. It was exclusive of separately billable procedures and treating other patients and teaching time. Please see Assessment and Plan section and the rest of the note for further information on patient assessment and treatment. Critical care time: 75 - 104 mins
[2025-02-05] MEDS: LORazepam (*CRX) 1 MG TABLET PO (19:16)
--- NOTE | 2025-02-05 21:53 | PC.NURSE ---
This patient, Stefan Carr, was received from [facility] on 02/05/25 at 1944. Patient/family oriented to unit policies and routines. Report received from [facility].
[2025-02-06] VITALS (9 sets, daily range): BP systolic 107–167; BP diastolic 75–98; PULSE 77–102; RESP 16–20; TEMP 36.6–36.9; O2SAT 95–98
[2025-02-06] MEDS: LORazepam (*CRX) 1 MG TABLET PO ×2 (00:11→06:05)
--- NOTE | 2025-02-06 03:07 | PC.NURSE ---
Spoke with Tiffany at [facility] transfer center. No beds at this time.
--- NOTE | 2025-02-06 08:07 | P.PNIM_ITS ---
Progress Note: A&P Assessment and Plan (1) Acute cerebral hemorrhage: Code(s): I61.9 - Nontraumatic intracerebral hemorrhage, unspecified Status: Acute Assessment and Plan: Patient presented with uncontrolled hypertension. Head CT showed Suspect cavernous malformation right parietal lobe periventricular. Recommend MRI. 02/05 Brain MRI showed 5 to 6 mm size lesion posterior to the occipital horn of the right lateral ventricle corresponding to the hyperdense focus on CT scan of 02/04/2025 is identified on MRI this is suggestive of a small hematoma. There is evidence of venous angioma noted in the same location. No evidence of AV malformation. Likely acute cerebral hemorrhage from uncontrolled hypertension. Patient evaluated by Neurology Neurosurgery Patient is awaiting transfer to [facility] for further evaluation and management to rule out any venous or AV malformation Continue blood pressure control with goal systolic blood pressure less than 160 Neuro checks Currently NPO Exam as above as patient does not have any significant neurological deficit Telemetry monitoring Will defer further workup like echocardiogram at all to accepting hospital Discontinue benzodiazepine (2) Cavernous malformation: Code(s): Q28.3 - Other malformations of cerebral vessels Status: Acute (3) Hypertensive urgency: Code(s): I16.0 - Hypertensive urgency Status: Acute Assessment and Plan: Continue olmesartan P.r.n. hydralazine and labetalol (4) Numbness: Code(s): R20.0 - Anesthesia of skin Status: Acute Assessment and Plan: It has resolved as per patient Monitor (5) Anxiety: Code(s): F41.9 - Anxiety disorder, unspecified Status: Acute Assessment and Plan: Hold Ativan Plan DVT prophylaxis -S CD Nutrition -NPO Code Status - Full Code Patient has been accepted at [facility] and was awaiting transfer as no bed was available yet. Patient's daughter requested transfer to [facility] since she is employed there. I spoke to transfer line and Dr. Hawk with internal medicine who has accepted the patient and patient will be transferred once bed is with [facility] for intervention neurology and neurosurgery evaluation. Subjective Date/time seen: 02/06/25 Patient states he is feeling fine and has a headache 2/10 which gets better with Tylenol. He denies any other complaints. He states that the numbness and tingling he had in his left hand when he came in has resolved. He does feel anxious about this whole situation Patient denies fever, chest pain, shortness of breath, cough, nausea vomiting, abdominal pain,, diarrhea, headache or constipation. All other systems were reviewed and were negative Blood pressures improved He is on room air. Review of Systems Review of Systems: All systems reviewed & are unremarkable except as noted in HPI and below (HPI) Exam Narrative: General: well appearing, appears stated age. HEENT: normocephalic, atraumatic. Mucous membranes moist. EOMI, PERRLA, bilateral sclera anicteric, no conjunctival injection. Neck supple without JVD, lymphadenopathy, or bruit. Respiratory: clear bilaterally. No rales/rhonic/wheezes. Cardiovascular: Regular rate and rhythm, normal S1-S2. No murmurs, rubs, or clicks. PMI is nondisplaced, capillary refill less than 3 second. Abdomen: Soft, round, no pulsatile masses, nondistended and nontender. No rebound, no guarding. Bowel sounds present to all four quadrants. No guarding or rigidity Extremities: No cyanosis, clubbing, or edema present. Pulses are palpable 2/2. Active ROM to all four extremities. Neuro: Alert and orientated x 3. PERRL. Cranial nerves 2-12 intact without focal deficit. Muscle strength 5/5 in all 4 extremities symmetrically, he does have some action tremor in his hands which he states is chronic, sensation to touch is intact in all 4 extremities, no facial asymmetry Skin: Warm, dry, and intact, without rash, erythema, or lesion. Psych: Appears anxious Objective Data Vital Signs Vital Signs: Vital Signs - 24 hr 02/05/25 12:00 02/05/25 14:00 02/05/25 19:01 Temperature 36.6 C Pulse Rate 67 82 88 Respiratory Rate 16 Blood Pressure 150/99 H Pulse Oximetry 96 Oxygen Delivery 02/05/25 20:00 02/05/25 20:00 02/05/25 21:12 Temperature Pulse Rate 76 Respiratory Rate Blood Pressure 130/83 Pulse Oximetry Oxygen Delivery Room Air 02/05/25 22:00 02/05/25 22:00 02/06/25 00:00 Temperature 36.9 C Pulse Rate 69 69 79 Respiratory Rate 17 18 Blood Pressure 142/87 H 161/98 H Pulse Oximetry 96 97 Oxygen Delivery 02/06/25 00:00 02/06/25 00:00 02/06/25 01:15 Temperature Pulse Rate 79 Respiratory Rate Blood Pressure 127/83 Pulse Oximetry Oxygen Delivery Room Air 02/06/25 02:00 02/06/25 02:00 02/06/25 04:00 Temperature Pulse Rate 77 77 Respiratory Rate 16 Blood Pressure 129/90 Pulse Oximetry 96 Oxygen Delivery Room Air 02/06/25 04:00 02/06/25 04:00 02/06/25 05:00 Temperature 36.9 C Pulse Rate 90 93 Respiratory Rate 19 Blood Pressure 148/94 H 137/88 Pulse Oximetry 96 Oxygen Delivery 02/06/25 06:00 02/06/25 06:00 02/06/25 08:00 Temperature 36.8 C Pulse Rate 100 100 102 H Respiratory Rate 20 18 Blood Pressure 136/89 151/93 H Pulse Oximetry 96 96 Oxygen Delivery Intake/Output Intake/Output: Intake & Output 02/03/25 02/04/25 02/05/25 02/06/25 23:59 23:59 23:59 23:59 Intake Total 1690 Output Total 1000 Balance 1690 -1000 Meds/Results Medications: Active Medications Generic Name Dose Route Start Last Admin Trade Name Freq PRN Reason Stop Dose Admin Acetaminophen 650 mg 02/05/25 03:20 02/05/25 11:11 Acetaminophen 325 Mg Tablet PO 650 mg Q4H PRN Administration Mild Pain (1-3) or Fever Atorvastatin Calcium 40 mg 02/05/25 10:15 02/05/25 11:11 Atorvastatin 40 Mg Tablet PO 40 mg DAILY BRENNA Administration Hydralazine HCl 20 mg 02/06/25 07:37 Hydralazine Hcl 20 Mg/Ml Vial IV PUSH Q4H PRN Hypertension Labetalol HCl 20 mg 02/05/25 18:14 Labetalol Hcl Inj 100 Mg/20 Ml Vial IV PUSH Q2HR PRN Hypertension Loratadine 10 mg 02/05/25 10:15 Loratadine 10 Mg Tablet PO DAILY PRN allergy symptoms Lorazepam 1 mg 02/05/25 19:00 02/06/25 06:05 Lorazepam (*Crx) 1 Mg Tablet PO 1 mg On Hold: 02/06/25 07:46 Q6H BRENNA Administration Olmesartan 40 mg 02/06/25 09:00 Olmesartan Medoxomil 10 Mg Tablet PO DAILY BRENNA Ondansetron HCl 4 mg 02/05/25 03:20 Ondansetron Inj 4 Mg/2 Ml Vial IV PUSH Q4H PRN Nausea Radiology Results: ITS Impressions Head CT 02/05/25 06:24 IMPRESSION: 1. No acute intracranial findings. 2. 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 Recommend MRI. Chest X-Ray 02/05/25 06:45 IMPRESSION: 1. No acute cardiopulmonary findings. Brain MRI 02/05/25 17:28 IMPRESSION: 1. 5 to 6 mm size lesion posterior to the occipital horn of the right lateral ventricle corresponding to the hyperdense focus on CT scan of 02/04/2025 is identified on MRI this is suggestive of a small hematoma. There is evidence of venous angioma noted in the same location. No evidence of AV malformation. 2. No other focal intracranial abnormalities are seen. No acute ischemia. No evidence of neoplasm. Quality VTE Prophylaxis VTE prophylaxis: mechanical ordered
[2025-02-06] MEDS: ATORVASTATIN 40 MG TABLET PO (08:25)
[2025-02-06] MEDS: OLMESARTAN MEDOXOMIL 10 MG TABLET 40 MG PO (08:26)
[2025-02-06] MEDS: ACETAMINOPHEN 325 MG TABLET 650 MG PO (08:26)
[2025-02-06] MEDS: MAGNESIUM SULF 2 GM/WATER 50ML 2 GM/50 ML BAG IVPB (10:14)
--- NOTE | 2025-02-06 10:58 | P.PNIM_ITS ---
Progress Note: A&P Assessment and Plan (1) Acute cerebral hemorrhage: Code(s): I61.9 - Nontraumatic intracerebral hemorrhage, unspecified Status: Acute Assessment and Plan: Patient presented with uncontrolled hypertension. Head CT showed Suspect cavernous malformation right parietal lobe periventricular. Recommend MRI. 02/05 Brain MRI showed 5 to 6 mm size lesion posterior to the occipital horn of the right lateral ventricle corresponding to the hyperdense focus on CT scan of 02/04/2025 is identified on MRI this is suggestive of a small hematoma. There is evidence of venous angioma noted in the same location. No evidence of AV malformation. Likely acute cerebral hemorrhage from uncontrolled hypertension. Patient evaluated by Neurology Neurosurgery Patient is awaiting transfer to [facility] for further evaluation and management to rule out any venous or AV malformation Continue blood pressure control with goal systolic blood pressure less than 160 Neuro checks Currently NPO Exam as above as patient does not have any significant neurological deficit Telemetry monitoring Will defer further workup like echocardiogram at all to accepting hospital Discontinue benzodiazepine (2) Cavernous malformation: Code(s): Q28.3 - Other malformations of cerebral vessels Status: Acute Assessment and Plan: Patient is waiting for transfer to [facility]. (3) Hypertensive urgency: Code(s): I16.0 - Hypertensive urgency Status: Acute Assessment and Plan: Continue olmesartan P.r.n. hydralazine and labetalol (4) Numbness: Code(s): R20.0 - Anesthesia of skin Status: Acute Assessment and Plan: It has resolved as per patient Monitor (5) Anxiety: Code(s): F41.9 - Anxiety disorder, unspecified Status: Acute Assessment and Plan: Stable Plan DVT prophylaxis -S CD Nutrition -NPO Code Status - Full Code Patient has been accepted at [facility] and was awaiting transfer as no bed was available yet. Patient's daughter requested transfer to [facility] since she is employed there. ICU attending spoke to transfer line and Dr. Hawk with internal medicine who has accepted the patient and patient will be transferred once bed is available in [facility] for intervention neurology and neurosurgery evaluation. Subjective Date/time seen: 02/06/25 10:58 Interval history: Patient was seen during the morning rounds today. No new overnight complaints. Waiting for transfer. Review of Systems Review of Systems: 12 systems were reviewed and are negativ e except for as per HPI. All systems reviewed & are unremarkable except as noted in HPI and below (HPI) Exam Narrative: General: well appearing, appears stated age. HEENT: normocephalic, atraumatic. Mucous membranes moist. EOMI, PERRLA, bilateral sclera anicteric, no conjunctival injection. Neck supple without JVD, lymphadenopathy, or bruit. Respiratory: clear bilaterally. No rales/rhonic/wheezes. Cardiovascular: Regular rate and rhythm, normal S1-S2. No murmurs, rubs, or clicks. PMI is nondisplaced, capillary refill less than 3 second. Abdomen: Soft, round, no pulsatile masses, nondistended and nontender. No rebound, no guarding. Bowel sounds present to all four quadrants. No guarding or rigidity Extremities: No cyanosis, clubbing, or edema present. Pulses are palpable 2/2. Active ROM to all four extremities. Neuro: Alert and orientated x 3. PERRL. Cranial nerves 2-12 intact without focal deficit. Muscle strength 5/5 in all 4 extremities symmetrically, he does have some action tremor in his hands which he states is chronic, sensation to touch is intact in all 4 extremities, no facial asymmetry Skin: Warm, dry, and intact, without rash, erythema, or lesion. Psych: Appears anxious Objective Data Vital Signs Vital Signs: Vital Signs - 24 hr 02/05/25 12:00 02/05/25 14:00 02/05/25 19:01 Temperature 36.6 C Pulse Rate 67 82 88 Respiratory Rate 16 Blood Pressure 150/99 H Pulse Oximetry 96 Oxygen Delivery 02/05/25 20:00 02/05/25 20:00 02/05/25 21:12 Temperature Pulse Rate 76 Respiratory Rate Blood Pressure 130/83 Pulse Oximetry Oxygen Delivery Room Air 02/05/25 22:00 02/05/25 22:00 02/06/25 00:00 Temperature 36.9 C Pulse Rate 69 69 79 Respiratory Rate 17 18 Blood Pressure 142/87 H 161/98 H Pulse Oximetry 96 97 Oxygen Delivery 02/06/25 00:00 02/06/25 00:00 02/06/25 01:15 Temperature Pulse Rate 79 Respiratory Rate Blood Pressure 127/83 Pulse Oximetry Oxygen Delivery Room Air 02/06/25 02:00 02/06/25 02:00 02/06/25 04:00 Temperature Pulse Rate 77 77 Respiratory Rate 16 Blood Pressure 129/90 Pulse Oximetry 96 Oxygen Delivery Room Air 02/06/25 04:00 02/06/25 04:00 02/06/25 05:00 Temperature 36.9 C Pulse Rate 90 93 Respiratory Rate 19 Blood Pressure 148/94 H 137/88 Pulse Oximetry 96 Oxygen Delivery 02/06/25 06:00 02/06/25 06:00 02/06/25 08:00 Temperature 36.8 C Pulse Rate 100 100 102 H Respiratory Rate 20 18 Blood Pressure 136/89 151/93 H Pulse Oximetry 96 96 Oxygen Delivery 02/06/25 08:00 02/06/25 08:00 02/06/25 10:00 Temperature Pulse Rate 100 100 92 Respiratory Rate 18 Blood Pressure Pulse Oximetry 96 Oxygen Delivery Room Air 02/06/25 10:00 Temperature 36.8 C Pulse Rate 92 Respiratory Rate 19 Blood Pressure 167/85 H Pulse Oximetry 98 Oxygen Delivery Intake/Output Intake/Output: Intake & Output 02/03/25 02/04/25 02/05/25 02/06/25 23:59 23:59 23:59 23:59 Intake Total 1690 Output Total 1000 Balance 1690 -1000 Meds/Results Medications: Active Medications Generic Name Dose Route Start Last Admin Trade Name Freq PRN Reason Stop Dose Admin Acetaminophen 650 mg 02/05/25 03:20 02/06/25 08:26 Acetaminophen 325 Mg Tablet PO 650 mg Q4H PRN Administration Mild Pain (1-3) or Fever Atorvastatin Calcium 40 mg 02/05/25 10:15 02/06/25 08:25 Atorvastatin 40 Mg Tablet PO 40 mg DAILY BRENNA Administration Hydralazine HCl 20 mg 02/06/25 07:37 02/06/25 10:25 Hydralazine Hcl 20 Mg/Ml Vial IV PUSH 20 mg Q4H PRN Administration Hypertension Magnesium Sulfate 2 gm in 50 mls @ 25 mls/hr 02/06/25 09:45 02/06/25 10:14 Magnesium Sulf 2 Gm/Water 50ml IVPB 02/06/25 11:44 25 mls/hr ONCE ONE Administration Labetalol HCl 20 mg 02/05/25 18:14 Labetalol Hcl Inj 100 Mg/20 Ml Vial IV PUSH Q2HR PRN Hypertension Loratadine 10 mg 02/05/25 10:15 Loratadine 10 Mg Tablet PO DAILY PRN allergy symptoms Lorazepam 1 mg 02/05/25 19:00 02/06/25 06:05 Lorazepam (*Crx) 1 Mg Tablet PO 1 mg On Hold: 02/06/25 07:46 Q6H BRENNA Administration Olmesartan 40 mg 02/06/25 09:00 02/06/25 08:26 Olmesartan Medoxomil 10 Mg Tablet PO 40 mg DAILY BRENNA Administration Ondansetron HCl 4 mg 02/05/25 03:20 Ondansetron Inj 4 Mg/2 Ml Vial IV PUSH Q4H PRN Nausea Radiology Results: ITS Impressions Head CT 02/05/25 06:24 IMPRESSION: 1. No acute intracranial findings. 2. 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 Recommend MRI. Chest X-Ray 02/05/25 06:45 IMPRESSION: 1. No acute cardiopulmonary findings. Brain MRI 02/05/25 17:28 IMPRESSION: 1. 5 to 6 mm size lesion posterior to the occipital horn of the right lateral ventricle corresponding to the hyperdense focus on CT scan of 02/04/2025 is identified on MRI this is suggestive of a small hematoma. There is evidence of venous angioma noted in the same location. No evidence of AV malformation. 2. No other focal intracranial abnormalities are seen. No acute ischemia. No evidence of neoplasm. Quality VTE Prophylaxis VTE prophylaxis: mechanical ordered
--- NOTE | 2025-02-06 12:48 | WPDNEUROPN ---
Subjective Date/time seen: 02/06/25 12:48 Interval history: 64 years old admitted to the ER for the intermittent episodes of hypertension and with the MRI revealing 5 to 6 mm size lesion posterior to the occipital horn of the right lateral ventricle corresponding to the hyperdense focus on CT scan of February 04, 2025 suggestive of a small hematoma with venous angioma in the same location but no AV malformation. Patient has been excepted at the [facility] for further open and evaluation discussed with the patient and his . Objective Data Vital Signs Vital Signs: Vital Signs - 24 hr 02/05/25 14:00 02/05/25 19:01 02/05/25 20:00 Temperature 36.6 C Pulse Rate 82 88 Respiratory Rate 16 Blood Pressure 150/99 H Pulse Oximetry 96 Oxygen Delivery Room Air 02/05/25 20:00 02/05/25 21:12 02/05/25 22:00 Temperature Pulse Rate 76 69 Respiratory Rate Blood Pressure 130/83 Pulse Oximetry Oxygen Delivery 02/05/25 22:00 02/06/25 00:00 02/06/25 00:00 Temperature 36.9 C Pulse Rate 69 79 Respiratory Rate 17 18 Blood Pressure 142/87 H 161/98 H Pulse Oximetry 96 97 Oxygen Delivery Room Air 02/06/25 00:00 02/06/25 01:15 02/06/25 02:00 Temperature Pulse Rate 79 77 Respiratory Rate Blood Pressure 127/83 Pulse Oximetry Oxygen Delivery 02/06/25 02:00 02/06/25 04:00 02/06/25 04:00 Temperature 36.9 C Pulse Rate 77 90 Respiratory Rate 16 19 Blood Pressure 129/90 148/94 H Pulse Oximetry 96 96 Oxygen Delivery Room Air 02/06/25 04:00 02/06/25 05:00 02/06/25 06:00 Temperature Pulse Rate 93 100 Respiratory Rate Blood Pressure 137/88 Pulse Oximetry Oxygen Delivery 02/06/25 06:00 02/06/25 08:00 02/06/25 08:00 Temperature 36.8 C Pulse Rate 100 102 H 100 Respiratory Rate 20 18 18 Blood Pressure 136/89 151/93 H Pulse Oximetry 96 96 96 Oxygen Delivery Room Air 02/06/25 08:00 02/06/25 10:00 02/06/25 10:00 Temperature 36.8 C Pulse Rate 100 92 92 Respiratory Rate 19 Blood Pressure 167/85 H Pulse Oximetry 98 Oxygen Delivery 02/06/25 12:00 02/06/25 12:00 02/06/25 12:00 Temperature 36.6 C Pulse Rate 94 94 94 Respiratory Rate 18 18 Blood Pressure 107/75 Pulse Oximetry 95 95 Oxygen Delivery Room Air Intake/Output Intake/Output: Intake & Output 02/03/25 02/04/25 02/05/25 02/06/25 23:59 23:59 23:59 23:59 Intake Total 1690 Output Total 1000 Balance 1690 -1000 Meds/Results Medications: Active Medications Generic Name Dose Route Start Last Admin Trade Name Freq PRN Reason Stop Dose Admin Acetaminophen 650 mg 02/05/25 03:20 02/06/25 08:26 Acetaminophen 325 Mg Tablet PO 650 mg Q4H PRN Administration Mild Pain (1-3) or Fever Atorvastatin Calcium 40 mg 02/05/25 10:15 02/06/25 08:25 Atorvastatin 40 Mg Tablet PO 40 mg DAILY BRENNA Administration Hydralazine HCl 20 mg 02/06/25 07:37 02/06/25 10:25 Hydralazine Hcl 20 Mg/Ml Vial IV PUSH 20 mg Q4H PRN Administration Hypertension Labetalol HCl 20 mg 02/05/25 18:14 Labetalol Hcl Inj 100 Mg/20 Ml Vial IV PUSH Q2HR PRN Hypertension Loratadine 10 mg 02/05/25 10:15 Loratadine 10 Mg Tablet PO DAILY PRN allergy symptoms Lorazepam 1 mg 02/05/25 19:00 02/06/25 06:05 Lorazepam (*Crx) 1 Mg Tablet PO 1 mg On Hold: 02/06/25 07:46 Q6H BRENNA Administration Olmesartan 40 mg 02/06/25 09:00 02/06/25 08:26 Olmesartan Medoxomil 10 Mg Tablet PO 40 mg DAILY BRENNA Administration Ondansetron HCl 4 mg 02/05/25 03:20 Ondansetron Inj 4 Mg/2 Ml Vial IV PUSH Q4H PRN Nausea Radiology Results: ITS Impressions Head CT 02/05/25 06:24 IMPRESSION: 1. No acute intracranial findings. 2. 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 Recommend MRI. Chest X-Ray 02/05/25 06:45 IMPRESSION: 1. No acute cardiopulmonary findings. Brain MRI 02/05/25 17:28 IMPRESSION: 1. 5 to 6 mm size lesion posterior to the occipital horn of the right lateral ventricle corresponding to the hyperdense focus on CT scan of 02/04/2025 is identified on MRI this is suggestive of a small hematoma. There is evidence of venous angioma noted in the same location. No evidence of AV malformation. 2. No other focal intracranial abnormalities are seen. No acute ischemia. No evidence of neoplasm.
--- NOTE | 2025-02-06 13:37 | PM.TDS ---
Transfer Discharge Sum: Prov Provider Date of admission: 02/06/25 11:30 Primary care physician: Luis Weir DO Admitting clinician: Terri Angel DO Consults: 02/05/25 03:21 Consult to Physician Routine Comment: Consulting Provider: Jaydon Doherty Reason for consultation: cavernous malformation, HAs, HTN Has provider been notified: Yes Attending physician on discharge: Garret Fraga Discharging clinician: Garret Fraga Anticipated date of transfer: 02/06/25 Receiving physician/facility: Dr. Hawk at [facility] DS: Admitting Diagnosis Discharge Date 02/06/2025 Admitting Diagnosis Uncontrolled hypertension Transfer Discharge Sum: Med Medications Active and Home Medications: Home Medications loratadine 10 mg chewable tablet (Claritin) 10 mg PO DAILY PRN allergy symptoms 05/08/24 [History Confirmed 02/05/25] atorvastatin 40 mg tablet 40 mg PO DAILY #90 tabs 08/14/24 [Rx Confirmed 02/05/25] olmesartan 20 mg tablet 20 mg PO DAILY #90 tabs 12/06/24 [Rx Confirmed 02/05/25] magnesium oxide 400 mg PO DAILY #7 tabs 02/05/25 [Rx] Active Medications Acetaminophen (Acetaminophen 325 Mg Tablet) 650 mg PO Q4H PRN PRN Reason: Mild Pain (1-3) or Fever Last Admin: 02/06/25 08:26 Dose: 650 mg Atorvastatin Calcium (Atorvastatin 40 Mg Tablet) 40 mg PO DAILY BRENNA Last Admin: 02/06/25 08:25 Dose: 40 mg Hydralazine HCl (Hydralazine Hcl 20 Mg/Ml Vial) 20 mg IV PUSH Q4H PRN PRN Reason: Hypertension Last Admin: 02/06/25 10:25 Dose: 20 mg Labetalol HCl (Labetalol Hcl Inj 100 Mg/20 Ml Vial) 20 mg IV PUSH Q2HR PRN PRN Reason: Hypertension Loratadine (Loratadine 10 Mg Tablet) 10 mg PO DAILY PRN PRN Reason: allergy symptoms Lorazepam (Lorazepam (*Crx) 1 Mg Tablet) 1 mg PO Q6H BRENNA On Hold: 02/06/25 07:46 Last Admin: 02/06/25 06:05 Dose: 1 mg Olmesartan (Olmesartan Medoxomil 10 Mg Tablet) 40 mg PO DAILY BRENNA Last Admin: 02/06/25 08:26 Dose: 40 mg Ondansetron HCl (Ondansetron Inj 4 Mg/2 Ml Vial) 4 mg IV PUSH Q4H PRN PRN Reason: Nausea Transfer Discharge Sum: Hosp Hospital Course Hospital course: Stefan Carr is a 64 year old male with past medical history of hypertension, hyperlipidemia presented to [place] [facility] on 02/05 with uncontrolled hypertension. He also complained of headache and some hand tingling in the left hand. He was found to be having systolic blood pressure of 180. Head CT showing Suspect cavernous malformation right parietal lobe periventricular. Neurology consulted MRI was done which showed 5 to 6 mm size lesion posterior to the occipital horn of the right lateral ventricle corresponding to the hyperdense focus on CT scan of 02/04/2025 is identified on MRI this is suggestive of a small hematoma. There is evidence of venous angioma noted in the same location. No evidence of AV malformation. Neuro checks were done. Patient was made NPO. Telemetry monitoring was performed. And blood pressure was controlled with p.r.n. labetalol and hydralazine. Patient's home medication olmesartan was continued Attempt was made to transfer patient to [facility] for Neurology and Neurosurgery evaluation. Patient was accepted but no bed was available On02/06 patient daughter requested patient be transferred to [facility] since she was an employee at [facility]. I spoke to Dr. Hawk and he accepted the patient and patient is being transferred to [facility] in a stable condition for further evaluation management. Patient Condition: Stable Time Spent with Patient Time attestation: Total time spent providing and/or coordinating transfer services: Total time spent: Less than 30 minutes Exam Narrative: General: well appearing, appears stated age. HEENT: normocephalic, atraumatic. Mucous membranes moist. EOMI, PERRLA, bilateral sclera anicteric, no conjunctival injection. Neck supple without JVD, lymphadenopathy, or bruit. Respiratory: clear bilaterally. No rales/rhonic/wheezes. Cardiovascular: Regular rate and rhythm, normal S1-S2. No murmurs, rubs, or clicks. PMI is nondisplaced, capillary refill less than 3 second. Abdomen: Soft, round, no pulsatile masses, nondistended and nontender. No rebound, no guarding. Bowel sounds present to all four quadrants. No guarding or rigidity Extremities: No cyanosis, clubbing, or edema present. Pulses are palpable 2/2. Active ROM to all four extremities. Neuro: Alert and orientated x 3. PERRL. Cranial nerves 2-12 intact without focal deficit. Muscle strength 5/5 in all 4 extremities symmetrically, he does have some action tremor in his hands which he states is chronic, sensation to touch is intact in all 4 extremities, no facial asymmetry Skin: Warm, dry, and intact, without rash, erythema, or lesion. Psych: Appears anxious
== END 2025-02-06 14:28 | disposition short-term general hospital (02) | DRG 64 ==
LOC: ANHED 02-05 02:57 → ANH3MED 02-05 03:41 → ANHICU 02-05 19:46
PROVIDERS: Student in an Organized Health Care Education/Training Program; Admitting Provider Internal Medicine; Emergency Provider Physician Assistant; PCP Internal Medicine; Visit Provider Internal Medicine
DX: I61.8 Other nontraumatic intracerebral hemorrhage (principal); Q28.3 Other malformations of cerebral vessels; I16.0 Hypertensive urgency; E78.5 Hyperlipidemia, unspecified; F41.9 Anxiety disorder, unspecified; R20.0 Anesthesia of skin; F10.90 Alcohol use, unspecified, uncomplicated; Z87.19 Personal history of other diseases of the digestive system
CPT/HCPCS: 36415; 70450; 70553; 71046; 80053; 82948; 83690; 83735; 84443; 84484; 85025; 85610; 85730; 93005; 96365; 96375; 99285; A9270; A9577; G0378; J0360; J3360; J3475; J7030